=== PATIENT | male | born 1945 | race Caucasian/White ===

== ENCOUNTER → 2020-08-10 11:30 | Outpatient (BNVA) | payer MEDICARE, OTHER, SELFPAY | PROVIDERS: Family Provider Internal Medicine; PCP Internal Medicine; Referring Provider Internal Medicine Cardiovascular Disease; Visit Provider Internal Medicine Cardiovascular Disease | DX: E78.5 Hyperlipidemia, unspecified (principal); I65.23 Occlusion and stenosis of bilateral carotid arteries | CPT/HCPCS: 80061 ==

== ENCOUNTER 2020-08-20 14:57 | Outpatient (CLI) | payer MEDICARE, OTHER, SELFPAY ==
--- NOTE | 2020-08-20 15:00 | USCV_ITS ---
Gilbertjessmell Dewey Joshua Age: 75 Gender: M : 1945 Exam Date: 08/20/2020 15:36 Ordering Phys: Lyle Espinosa MD ([email or web address]) Technologist: Kristine Maldonado Exam Location: [facility] [place] Indication: STENOSIS Risk Factors: Previous Vascular Surgery: Right Brachial BP: / Left Brachial BP: / Right Left Velocity (cm/s) Spectral Plaque Velocity (cm/s) Spectral Plaque Syst/Diast Broadening Syst/Diast Broadening 50.70/ 22.10 Prox CCA 37.40 / 13.90 31.60/ 13.10 Mid CCA 113.10/ 26.30 33.50/ 14.50 Distal CCA 96.00 / 17.10 40.40/ 21.00 Prox ICA 36.10 / 15.70 45.80/ 24.10 Mid ICA 46.20 / 22.70 52.80/ 21.80 Distal ICA 43.10 / 17.20 167.80 ECA 59.60 1.67 ICA/CCA 0.41 Antegrade Vertebral Not Visualized 45.10/ 16.30 cm/s / cm/s Tri Subclavian Tri 38.50 73.60 FINDINGS Patent stent in the distal common carotid/proximal internal carotid artery with normal Doppler flow signals Elevated velocity in the right external carotid artery Mild to moderate plaques of the left bifurcation and proximal internal carotid artery Antegrade flow in the vertebral arteries bilaterally Normal Doppler flow signals in the subclavian arteries bilaterally CONCLUSIONS 1. Patent stent in the right common carotid/no carotid artery with no evidence of any in-stent stenosis. 2. Elevated velocity in the right external carotid artery, may suggest hemodynamically significant stenosis 3. Mild to moderate plaques at the left bifurcation proximal to the carotid artery with flow characteristics suggesting less than 50% stenosis. 4. Intimal thickening in the common carotid arteries bilaterally. No similar previous studies are available for comparison Dr Lyle Espinosa MD [facility] (Electronically Signed) Final Date: 21 August 2020 15:44 S
--- NOTE | 2020-08-20 15:45 | USCV_ITS ---
Joshua Jimenez Jr Age: 75 Gender: M : 1945 Exam Date: 08/20/2020 15:20 Ordering Phys: Lyle Espinosa MD ([email or web address]) Technologist: Kristine Maldonado Exam Location: [facility] – [place] Indication: CHEST PAIN BP: 115 / 59 HR: 71 Rhythm: Sinus Technical Quality: Technically difficult study MEASUREMENTS (Male / Female) Normal Values 2D ECHO LV Diastolic Diameter PLAX 5.2 cm 4.2 - 5.9 / 3.9 - 5.3 cm LV Systolic Diameter PLAX 4.0 cm IVS Diastolic Thickness 1.6 cm 0.6 - 1.0 / 0.6 - 0.9 cm IVS Systolic Thickness 1.9 cm LVPW Diastolic Thickness 2.0 cm 0.6 - 1.0 / 0.6 - 0.9 cm LVPW Systolic Thickness 2.5 cm LVOT Diameter 2.0 cm LV Ejection Fraction 2D Teich 45.7 % LV Ejection Fraction MOD 2C 46.8 % LV Ejection Fraction 2C AL 45.5 % LA Diameter 3.8 cm LA Width 3.2 cm LA Height 3.9 cm RA Width 3.1 cm RA Height 3.5 cm Aorta at Sinotubular Diameter 2.9 cm M-MODE LV Diastolic Diameter MM 4.9 cm 4.2 - 5.9 / 3.9 - 5.3 cm LV Systolic Diameter MM 3.4 cm LV Ejection Fraction MM Teich 59.0 % IVS Diastolic Thickness MM 1.7 cm 0.6 - 1.0 / 0.6 - 0.9 cm IVS Systolic Thickness MM 2.2 cm LVPW Diastolic Thickness MM 1.4 cm 0.6 - 1.0 / 0.6 - 0.9 cm LVPW Systolic Thickness MM 1.6 cm Aortic Annulus Diameter 2.6 cm LA Ao Ratio MM 1.9 MV E Point Septal Separation 1.7 cm DOPPLER AV Peak Velocity 105.0 cm/s LVOT Peak Velocity 105.0 cm/s AV Area Cont Eq vti 3.3 cm squared AV Area Cont Eq pk 3.3 cm squared MV Area PHT 4.3 cm squared Mitral E to A Ratio 1.0 MV E' Velocity 51.0 cm/s Mitral E to MV E' Ratio 15.5 Mitral E to LV E' Lateral Ratio 13.0 Mitral E to LV E' Septal Ratio 19.7 TR Peak Velocity 175.3 cm/s TR Peak Gradient 12.3 mmHg TV Peak E Velocity 86.0 cm/s Right Atrial Pressure 3.0 mmHg Pulmonary Artery Systolic Pressu 15.3 mmHg PV Peak Velocity 94.0 cm/s RV Acceleration Time 0.1 s RV Ejection Time 0.5 s RV AcT/ET 0.2 FINDINGS Left Ventricle Mild diffuse hypokinesia of the left ventricle with an ejection fraction of 45%.mild left ventricular hypertrophy. Some features of grade 2 left-ventricular diastolic dysfunction Right Ventricle Normal right ventricular size and systolic function. Right Atrium possibly of normal size Left Atrium possibly of normal size Mitral Valve Thickened mitral valve. Mild mitral annular calcification. Aortic Valve The bioprosthetic valve the aortic position appears to be well- seated. Leaflets cannot be delineated well. No gross abnormalities noted Tricuspid Valve No gross abnormalities noted Pulmonic Valve Pulmonic valve not well visualized. Pericardium Normal pericardium without effusion. Aorta Normal ascending aorta dimension. CONCLUSIONS Mild diffuse hypokinesia of the left ventricle with an ejection fraction of 45%. mild left ventricular hypertrophy. Some features of grade 2 left-ventricular diastolic dysfunction. The bioprosthetic valve the aortic position appears to be well- seated. Thickened mitral valve. Mild mitral annular calcification. Leaflets cannot be delineated well. No gross abnormalities noted. There is no pericardial effusion. There are no intracardiac masses. No previous study is available for comparison. Compared to the study from 10/20/2017, there is impro vement of the LV ejection fraction and replacement of the aortic valve Dr Lyle Espinosa MD [facility] (Electronically Signed) Final Date: 21 August 2020 15:38 S
== END 2020-08-20 14:58 | disposition home or self-care (01) ==
LOC: US 14:59
PROVIDERS: PCP Internal Medicine; Visit Provider Internal Medicine Cardiovascular Disease
DX: R07.89 Other chest pain (principal); I65.23 Occlusion and stenosis of bilateral carotid arteries; I70.0 Atherosclerosis of aorta; Z95.2 Presence of prosthetic heart valve
CPT/HCPCS: 93306; 93880

== ENCOUNTER 2021-04-20 11:14 | Outpatient (CLI) | payer MEDICARE, OTHER, SELFPAY ==
--- NOTE | 2021-04-20 11:36 | XR_ITS ---
WS: [id number] Left hand, 3 views, 04/20/2021 Clinical Data: THUMB PAIN, LEFT Comparison: None. Findings: No new fractures or dislocations are seen. The soft tissues are unremarkable. The joint spaces are n ormal There is an old left fifth metacarpal fracture. XR/XR hand LT min 3V* [id number] Impression: Negative left hand.
== END 2021-04-20 11:15 | disposition home or self-care (01) ==
PROVIDERS: PCP Internal Medicine; Visit Provider Nurse Practitioner Family
DX: M79.645 Pain in left finger(s) (principal)
CPT/HCPCS: 73130

== ENCOUNTER 2021-08-26 14:21 | Outpatient (CLI) | payer MEDICARE, OTHER, SELFPAY ==
--- NOTE | 2021-08-26 14:15 | USCV_ITS ---
Joshua Jimenez Jr Age: 76 Gender: M : 1945 Exam Date: 08/26/2021 14:40 Ordering Phys: Lyle Espinosa MD ([email or web address]) Technologist: BRIAN [place] [facility] [place]ication: Occlusion and stenosis of bilateral carotid arteries Risk Factors: Previous Vascular Surgery: Right Brachial BP: / Left Brachial BP: / Right Left Velocity (cm/s) Spectral Plaque Velocity (cm/s) Spectral Plaque Syst/Diast Broadening Syst/Diast Broadening 63.90/ 16.50 Prox CCA 73.90 / 15.40 52.80/ 14.80 Mid CCA 50.40 / 10.30 33.40/ 7.80 Distal CCA 186.20/ 30.60 34.40/ 9.10 Prox ICA 81.60 / 24.30 52.80/ 15.30 Mid ICA 52.50 / 13.80 56.00/ 18.10 Distal ICA 42.90 / 16.10 140.70 ECA 110.30 1.06 ICA/CCA 1.62 Antegrade Vertebral Antegrade 39.70/ 12.40 cm/s 43.95/ 11.20 cm/s Tri Subclavian Bi 43.50 107.0 0 CONCLUSIONS Right ICA stenosis <50%. Mild atheromatous plaque right carotid bulb/ICA. Left ICA stenosis <50%. Mild atheromatous plaque left carotid bulb/ICA. Normal antegrade Doppler flow noted in the right vertebral artery. Normal antegrade Doppler flow noted in the left vertebral artery. Ramon Schafer MD (Electronically Signed) Final Date: 26 August 2021 16:31 S
--- NOTE | 2021-08-26 14:34 | USCV_ITS ---
Barbara Dewey, Joshua Age: 76 Gender: M : 1945 Exam Date: 08/26/2021 15:06 Ordering Phys: Lyle Espinosa MD ([email or web address]) Technologist: BRIAN Exam Location: [facility] – [place] Indication: coronary angioplasty status BP: 123 / 80 HR: 72 Rhythm: Sinus Technical Quality: Technically difficult study MEASUREMENTS (Male / Female) Normal Values 2D ECHO LV Diastolic Diameter PLAX 4.8 cm 4.2 - 5.9 / 3.9 - 5.3 cm LV Systolic Diameter PLAX 3.9 cm IVS Diastolic Thickness 1.1 cm 0.6 - 1.0 / 0.6 - 0.9 cm IVS Systolic Thickness 1.4 cm LVPW Diastolic Thickness 1.3 cm 0.6 - 1.0 / 0.6 - 0.9 cm LVPW Systolic Thickness 1.7 cm LVOT Diameter 2.0 cm LV Ejection Fraction 2D Teich 39.7 % LA Diameter 3.7 cm Aorta at Sinotubular Diameter 2.7 cm M-MODE MV E Point Septal Separation 1.2 cm DOPPLER AV Peak Velocity 251.0 cm/s LVOT Peak Velocity 126.0 cm/s AV Area Cont Eq vti 1.5 cm squared AV Area Cont Eq pk 1.6 cm squared MV Area PHT 3.1 cm squared Mitral E to A Ratio 1.1 MV E' Velocity 56.5 cm/s Mitral E to MV E' Ratio 19.1 Mitral E to LV E' Lateral Ratio 19.1 Mitral E to LV E' Septal Ratio 19.1 TV Peak E Velocity 48.0 cm/s PV Peak Velocity 84.0 cm/s RV Acceleration Time 0.0 s RV Ejection Time 0.3 s RV AcT/ET 0.2 FINDINGS Left Ventricle Normal left ventricular cavity size. Moderately decreased left ventricular systolic function. Left ventricular ejection fraction is estimated at 45 %. Global left ventricular hypokinesis. Grade I/IV diastolic dysfunction (abnormal relaxation filling pattern), normal to mildly elevated filling pressures. Right Ventricle The right ventricle is normal in size and function. RVSP could not be calculated due to incomplete tricuspid regurgitation velocity profile. Right Atrium The right atrium is normal in size. Left Atrium The left atrium is normal in size. Mitral Valve Severely thickened mitral valve. Severe mitral annular calcification. No mitral valve stenosis. Trace mitral valve regurgitation. Aortic Valve Bioprosthetic aortic valve is present in normal position, mean gradient 13.5 mmHg, JEAN 1.5 cm squared.no aortic valve regurgitation. Tricuspid Valve Structurally normal tricuspid valve without significant stenosis or regurgitation. Pulmonary artery systolic pressure is normal. Pulmonic Valve Structurally normal pulmonic valve without significant stenosis. There is no pulmonic regurgitation. Pericardium Normal pericardium without effusion. Aorta Normal ascending aorta dimension. CONCLUSIONS 1-Normal left ventricular cavity size. Moderately decreased left ventricular systolic function. Left ventricular ejection fraction is estimated at 45 %. Global left ventricular hypokinesis. Grade I/IV diastolic dysfunction (abnormal relaxation filling pattern), normal to mildly elevated filling pressures. 2-Severely thickened mitral valve. Severe mitral annular calcification. No mitral valve stenosis. Trace mitral valve regurgitation. 3-Bioprosthetic aortic valve is present in normal position, mean gradient 13.5 mmHg, JEAN 1.5 cm squared.no aortic valve regurgitation. 4-The right ventricle is normal in size and function. RVSP could not be calculated due to incomplete tricuspid regurgitation velocity profile. 5-There is no pericardial effusion. 6-Right atrial pressure is around 5 mm of mercury. 7-No significant change from the prior exam dated August 21, 2020 there is no significant difference. Fany Johnson MD (Electronically Signed) Final Date: 26 August 2021 17:45 S
== END 2021-08-26 14:22 | disposition home or self-care (01) ==
PROVIDERS: PCP Internal Medicine; Visit Provider Internal Medicine Cardiovascular Disease
DX: Z98.61 Coronary angioplasty status (principal); I65.23 Occlusion and stenosis of bilateral carotid arteries; I08.1 Rheumatic disorders of both mitral and tricuspid valves; Z95.2 Presence of prosthetic heart valve
CPT/HCPCS: 93306; 93880

== ENCOUNTER → 2021-11-10 12:49 | Outpatient (BNVA) | payer MEDICARE, OTHER, SELFPAY | PROVIDERS: PCP Internal Medicine; Visit Provider Internal Medicine Cardiovascular Disease | DX: I25.10 Atherosclerotic heart disease of native coronary artery without angina pectoris (principal); I25.5 Ischemic cardiomyopathy; E78.5 Hyperlipidemia, unspecified; I44.7 Left bundle-branch block, unspecified; J44.9 Chronic obstructive pulmonary disease, unspecified; I35.0 Nonrheumatic aortic (valve) stenosis; I48.21 Permanent atrial fibrillation; Z95.1 Presence of aortocoronary bypass graft; Z95.810 Presence of automatic (implantable) cardiac defibrillator; I65.23 Occlusion and stenosis of bilateral carotid arteries; Z95.5 Presence of coronary angioplasty implant and graft; Z87.891 Personal history of nicotine dependence | CPT/HCPCS: 99214 ==

== ENCOUNTER → 2021-11-29 13:58 | Outpatient (BNVA) | payer MEDICARE, OTHER, SELFPAY | PROVIDERS: PCP Internal Medicine; Visit Provider Internal Medicine Cardiovascular Disease | DX: Z45.02 Encounter for adjustment and management of automatic implantable cardiac defibrillator (principal) | CPT/HCPCS: 93284 ==

== ENCOUNTER 2021-12-24 11:20 | Outpatient (CLI) | payer MEDICARE, OTHER, SELFPAY ==
[2021-12-24 12:18] LABS: Blood Urea Nitrogen 11 mg/dL (8-23); Calcium 9.5 mg/dL (8.5-10.5); Carbon Dioxide 23 mmol/L (22-29); Chloride 101 mmol/L (98-107); Glucose 105 mg/dL (65-115); NT Pro B Type Natriuretic Pept 403 pg/mL (0-450); Osmolality Calculated 282 mOsm/kg (285-295); Sodium 136 mmol/L (136-145)
[2021-12-24 12:19] LABS: Anion Gap 16.2 (5-19); Potassium 4.2 mmol/L (3.5-5.1)
== END 2021-12-24 11:21 | disposition home or self-care (01) ==
LOC: LAB 11:29
PROVIDERS: PCP Internal Medicine; Visit Provider Internal Medicine Cardiovascular Disease
DX: I25.10 Atherosclerotic heart disease of native coronary artery without angina pectoris (principal); I25.5 Ischemic cardiomyopathy; I48.21 Permanent atrial fibrillation; I27.20 Pulmonary hypertension, unspecified; R60.9 Edema, unspecified
CPT/HCPCS: 80048; 83880

== ENCOUNTER → 2022-05-12 15:00 | Outpatient (BNVA) | payer MEDICARE, OTHER, SELFPAY | PROVIDERS: PCP Internal Medicine; Visit Provider Internal Medicine Cardiovascular Disease | DX: I25.5 Ischemic cardiomyopathy (principal); I50.20 Unspecified systolic (congestive) heart failure; R06.02 Shortness of breath; E78.5 Hyperlipidemia, unspecified; I25.10 Atherosclerotic heart disease of native coronary artery without angina pectoris; J44.9 Chronic obstructive pulmonary disease, unspecified; I27.20 Pulmonary hypertension, unspecified; I48.21 Permanent atrial fibrillation; Z95.2 Presence of prosthetic heart valve; Z95.810 Presence of automatic (implantable) cardiac defibrillator; I65.23 Occlusion and stenosis of bilateral carotid arteries; F17.200 Nicotine dependence, unspecified, uncomplicated | CPT/HCPCS: 36415; 80048; 83880; 99214 ==

== ENCOUNTER → 2022-05-26 12:48 | Outpatient (BNVA) | payer MEDICARE, OTHER, SELFPAY | PROVIDERS: PCP Internal Medicine; Visit Provider Nurse Practitioner Family | DX: I25.5 Ischemic cardiomyopathy (principal); Z87.891 Personal history of nicotine dependence | CPT/HCPCS: 99213; 99214 ==

== ENCOUNTER 2022-06-02 12:31 | Outpatient (CLI) | payer MEDICARE, OTHER, SELFPAY ==
[2022-06-02 13:23] LABS: Anion Gap 13.3 (5-19); Blood Urea Nitrogen 14 mg/dL (8-23); Calcium 9.6 mg/dL (8.5-10.5); Carbon Dioxide 27 mmol/L (22-29); Chloride 101 mmol/L (98-107); Glucose 87 mg/dL (65-115); NT Pro B Type Natriuretic Pept 213 pg/mL (0-450); Osmolality Calculated 284 mOsm/kg (285-295); Potassium 4.3 mmol/L (3.5-5.1); Sodium 137 mmol/L (136-145)
== END 2022-06-02 12:32 | disposition home or self-care (01) ==
PROVIDERS: Nurse Practitioner Family; PCP Internal Medicine; Visit Provider Internal Medicine Cardiovascular Disease
DX: I25.5 Ischemic cardiomyopathy (principal)
CPT/HCPCS: 36415; 80048; 83880

== ENCOUNTER → 2022-07-22 08:11 | Outpatient (BNVA) | payer MEDICARE, OTHER, SELFPAY | PROVIDERS: PCP Internal Medicine; Visit Provider Nurse Practitioner Family | DX: I25.5 Ischemic cardiomyopathy (principal); Z87.891 Personal history of nicotine dependence | CPT/HCPCS: 36415; 99214 ==

== ENCOUNTER → 2022-08-03 13:16 | Outpatient (BNVA) | payer MEDICARE, OTHER, SELFPAY | PROVIDERS: PCP Internal Medicine; Visit Provider Nurse Practitioner Family | DX: I25.5 Ischemic cardiomyopathy (principal); I48.21 Permanent atrial fibrillation; Z87.891 Personal history of nicotine dependence | CPT/HCPCS: 99213 ==

== ENCOUNTER → 2022-08-19 11:17 | Outpatient (BNVA) | payer MEDICARE, OTHER, SELFPAY | PROVIDERS: PCP Internal Medicine; Visit Provider Internal Medicine Cardiovascular Disease | DX: Z45.02 Encounter for adjustment and management of automatic implantable cardiac defibrillator (principal) | CPT/HCPCS: 93284 ==

== ENCOUNTER → 2022-11-22 14:11 | Outpatient (BNVA) | payer MEDICARE, OTHER, SELFPAY | PROVIDERS: PCP Internal Medicine; Visit Provider Internal Medicine Cardiovascular Disease | DX: I25.5 Ischemic cardiomyopathy (principal); E78.5 Hyperlipidemia, unspecified; I27.20 Pulmonary hypertension, unspecified; I25.10 Atherosclerotic heart disease of native coronary artery without angina pectoris; I48.21 Permanent atrial fibrillation; Z95.2 Presence of prosthetic heart valve; Z95.810 Presence of automatic (implantable) cardiac defibrillator; I65.23 Occlusion and stenosis of bilateral carotid arteries; Z87.891 Personal history of nicotine dependence; Z79.82 Long term (current) use of aspirin | CPT/HCPCS: 99214 ==

== ENCOUNTER → 2022-11-29 09:05 | Outpatient (BNVA) | payer MEDICARE, OTHER, SELFPAY | PROVIDERS: PCP Internal Medicine; Visit Provider Internal Medicine Cardiovascular Disease | DX: Z45.02 Encounter for adjustment and management of automatic implantable cardiac defibrillator (principal) | CPT/HCPCS: 93295; 93296 ==

== ENCOUNTER 2022-12-05 14:51 | Outpatient (CLI) | payer MEDICARE, OTHER, SELFPAY ==
--- NOTE | 2022-12-05 15:00 | USCV_ITS ---
GilbertjessJoshua monte Jr Age: 77 Gender: M : 1945 Exam Date: 12/05/2022 15:18 Ordering Phys: Lyle Espinosa MD ([email or web address]) Technologist: IMAN Exam Location: [facility] – [place] Indication: Stenosis Risk Factors: Previous Vascular Surgery: Right Brachial BP: / Left Brachial BP: / Right Left Velocity (cm/s) Spectral Plaque Velocity (cm/s) Spectral Plaque Syst/Diast Broadening Syst/Diast Broadening 82.30/ 23.30 Prox CCA 58.70 / 13.90 52.80/ 16.30 Mid CCA 127.90/ 32.00 61.40/ 17.10 Distal CCA 128.00/ 16.60 55.50/ 14.50 Prox ICA 65.00 / 19.50 52.80/ 16.40 Mid ICA 52.40 / 19.90 88.00/ 26.50 Distal ICA 52.40 / 17.10 203.30 ECA 86.70 1.07 ICA/CCA 0.51 Antegrade Vertebral Antegrade 50.20/ 17.10 cm/s 13.80/ 6.20 cm/s Tri Subclavian Tri 144.5 153.8 0 0 FINDINGS Patent stented segment of the common carotid and internal carotid arteries on the left side Mild to moderate plaques in the left bifurcation and internal carotid artery low velocity Doppler waveforms in the left vertebral artery Elevated Doppler velocity in the right external carotid artery Normal Doppler flow velocities in the subclavian arteries bilaterally CONCLUSIONS 1. Patent stented segment of the common carotid and internal carotid arteries of the right side with no evidence of stenosis 2. Elevated velocity in the external carotid artery on the right side, suggestive of hemodynamically significant stenosis. 3. Features of sluggish blood flow in the left vertebral artery 4. Mild to moderate plaques in the left bifurcation and internal carotid artery, suggesting less than 50% stenosis Compared to the study from 08/26/2021, the left vertebral artery flow velocity has significantly decreased Dr Lyle Espinosa MD [facility] (Electronically Signed) Final Date: 06 Dec 2022 22:53 S
== END 2022-12-05 14:52 | disposition home or self-care (01) ==
LOC: RAD 14:56
PROVIDERS: PCP Internal Medicine; Visit Provider Internal Medicine Cardiovascular Disease
DX: I65.23 Occlusion and stenosis of bilateral carotid arteries (principal); I77.9 Disorder of arteries and arterioles, unspecified; Z95.828 Presence of other vascular implants and grafts
CPT/HCPCS: 93880

== ENCOUNTER 2023-03-14 11:02 | Emergency (ER) | payer MEDICARE, OTHER, SELFPAY ==
[2023-03-14 11:07] VITALS: BMI 28.8
[2023-03-14 11:09] VITALS: BP 121/71; PULSE 81; RESP 16; TEMP 36.7; O2SAT 96
--- NOTE | 2023-03-14 11:09 | ECG_ITS ---
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 Measurements Intervals [place] Rate: 78 P: 18 MD: 141 QRS: 120 QRSD: 137 T: 27 QT: 410 QTc: 467 Interpretive Statements ELECTRONIC VENTRICULAR PACEMAKER ABNORMAL RHYTHM ECG No previous ECG available for comparison Electronically Signed On 03-14-2023 23:57:32 CDT by Lyle Espinosa M.D. [email or web address] campus [email or web address] delta regional medical centerSensorberg GmbHcleveland clinic union [email or web address].[place] [id number]
--- NOTE | 2023-03-14 11:23 | XR_ITS ---
WS: [id number] Exam: XR chest 1V portable [id number] Date/Time of Exam: 03/14/2023 11:26 AM Reason For Exam: chest pain Comparison 06/01/2018. The lungs are fully inflated and clear. Mild cardiac enlargement unchanged. A cardiac pacer and defibrillator superimpose the LEFT chest. Signs of previous CABG surgery and cardia c valve replacement. No pleural effusions. The mediastinum is normal in contour for technique. Bony s tructures are intact. IMPRESSION: 1. No acute cardiopulmonary finding. 2. Mild cardiac enlargement stable.
--- NOTE | 2023-03-14 11:44 | ED_ITS ---
HPI - Chest Pain General: Chief Complaint: Chest Pain Stated Complaint: CP, legs tingling Time Seen by Provider: 03/14/23 11:21 History of Present Illness: This is a 78-year-old male here with his and daughter. Patient reports he woke up at about 6:00 this morning due to chest discomfort in the center of his chest radiating slightly to the left and to the right. He reports he also felt like he was breathing heavily. He attempted to slow his breathing but that did not really seem to make a difference. No diaphoresis, nausea, neck pain, jaw pain, arm discomfort. He said he felt generally weak in his legs both began to tingle. It lasted about 30 minutes. He went ahead and took a baby aspirin but did not have any nitroglycerin. It was resolved by 630 this morning. He does have a relevant history of ischemic cardiomyopathy, dyslipidemia, COPD, aortic valve replacement, atrial fibrillation, ICD and pacemaker, pulmonary hypertension, and noncritical carotid stenosis bilaterally. Patient reports has not had any symptoms since 630 this morning. When asked about any anginal equivalent symptoms over the last few months, the only thing he can say is that he sometimes gets lightheaded while walking longer distances at [facility]. He typically will use the cart to steady himself. Otherwise he has not had any symptoms Associated symptoms: Deny abdominal pain, dyspnea, fever(s), nausea or vomiting Review of Systems General: Reports: 10 or more systems reviewed and unremarkable except in HPI and below Const: Denies: fever(s), chills or body aches Eyes: Denies: change in vision ENMT: Denies: throat pain Card: Denies: edema Resp: Denies: dyspnea or productive cough GI: Denies: abdominal pain, nausea, vomiting or diarrhea : Denies: flank pain, dysuria or urinary frequency Musc: Denies: neck pain, back pain, extremity pain or extremity swelling Skin/Breast: Denies: rash or erythema Neuro: Denies: headache(s), numbness in extremities, weakness in extremities, lack of coordination or difficulty walking PFS ED PFSH: Medical History Aortic stenosis ASHD (arteriosclerotic heart disease) The EKG revealed a sensed V paced rhythm. Occasional PVCs. Atrial fibrillation Cardiomyopathy Carotid stenosis, bilateral COPD (chronic obstructive pulmonary disease) Glucose intolerance Left bundle branch block Pulmonary HTN Tobacco abuse Surgical History History of maze procedure S/P AVR (aortic valve replacement) S/P CABG (coronary artery bypass graft) S/P ICD (internal cardiac defibrillator) procedure S/P PTCA (percutaneous transluminal coronary angioplasty) Family History Mother CAD (coronary artery disease) Cancer Father CAD (coronary artery disease) Cancer Denies family history of Diabetes Clotting disorder Dementia Chronic kidney disease (CKD) Suicide Anesthesia complication Bleeding disorder Lung disease Stroke Social History Smoking and tobacco status: former smoker (11 years ago) Household members: spouse Marital status: Physical Exam Const: COMMON NORMALS: no limitations, alert and well nourished EXAM LIMITATIONS: no altered mental status HENMT: COMMON NORMALS: normocephalic, atraumatic and external ears normal HEAD & SCALP: normocephalic and atraumatic EXTERNAL EAR: Yes external ears normal MOUTH: no muffled voice Eye: COMMON NORMALS: EOMs intact bilaterally, conjunctivae normal and no scleral icterus CONJUNCTIVA: Yes conjunctivae normal Neck/C-Spine: COMMON NORMALS: no JVD GENERAL: Yes normal visual inspection and Yes trachea midline Resp: COMMON NORMALS: normal respiratory effort, No use of accessory muscles and clear to auscultation bilaterally AUSCULTATION: clear to auscultation bilaterally Cardio: COMMON NORMALS: no JVD, regular rate and regular rhythm RATE: regular rate RHYTHM: regular rhythm GI: COMMON NORMALS: Soft to palpation and non-tender PALPATION: Yes Soft to palpation and No Guarding due to palpation present (GI) Extremity: COMMON NORMALS: normal to inspection Neuro: COMMON NORMALS: moves all extremities, no focal motor deficits and no sensory deficits noted SENSORIUM/ORIENTATION: Yes alert SPEECH: speech normal Psych: COMMON NORMALS: mental status grossly normal, Normal thought process present, cooperative, normal affect and speech normal SPEECH: Yes normal speech THOUGHT PROCESS: Normal thought process present Skin: COMMON NORMALS: no rashes or lesions noted, turgor normal and no jaundice GENERAL SKIN EXAM: no rashes or lesions noted and turgor normal Course Vital Signs: Vital signs: Vital Signs Temperature 98.0 F 03/14/23 11:09 Pulse Rate 78 03/14/23 12:05 Respiratory Rate 18 03/14/23 12:05 Blood Pressure 121/71 03/14/23 11:09 Pulse Oximetry 95 03/14/23 12:05 Oxygen Delivery Me thod Room Air 03/14/23 12:05 MDM - Chest Pain Medical Decision Making Joshua is a well-appearing 78-year-old male in good spirits. He has no di scomfort at this time but had 30 minutes of chest discomfort associated with a vague sense of dyspnea and generalized weakness with tingling in both of his lower extremities earlier this morning. He does have an extensive cardiac history. The plan is to obtain troponin levels, chest x-ray, interrogate his pacemaker and reassess. It has been 5 hours since his chest pain stopped so a single troponin should be sufficient to help us make a decision. I will go ahead and give him 324 of aspirin today. No abdominal tenderness. No signs of congestive heart failure exacerbation. Patient is on room air with normal breath sounds and work of breathing. UPDATE: Troponin is 10. White blood cell count is 8.6. Hemoglobin 13.8. Platelets normal, electrolytes normal. [employer] interrogation shows a longevity of 4 years, measured [place] wave is 2 mV atrial and 2.6 mV right ventricle. Programmed sensitivity is 0.3 mV atrial and 0.3 mV right ventricular. Mode is DDDR. There were no detected episodes of arrhythmia. No overdrive pacing. No issues. I discussed all these results with the patient and his . Patient has been asymptomatic since 6:30 AM. He is resting comfortably and has normal vital signs. I gave him the option of observation admission to the hospital versus being discharged with return precautions. I did explain that I was unsure what caused his symptoms and that he does have significant coronary risk factors. Patient considered and decided that he would absolutely like to go home. I will go ahead and prescribe some nitroglycerin and I gave him the usual return precautions. Lab Data 03/14/23 11:37 03/14/23 11:37 Laboratory Results WBC 8.59 10^3/uL (3.29-11.43) 03/14/23 11:37 RBC 4.51 10^6/uL (3.85-5.65) 03/14/23 11:37 Hgb 13.80 g/dL (11.27-16.99) 03/14/23 11:37 Hct 41.9 % (37-53) 03/14/23 11:37 MCV 92.9 fl (82-101) 03/14/23 11:37 MCH 30.6 pg (27-33) 03/14/23 11:37 MCHC 32.9 g/dL (30-55) 03/14/23 11:37 RDW 12.7 % (12.1-15.1) 03/14/23 11:37 Plt Count 191 10^3/cmm (157-399) 03/14/23 11:37 MPV 11.1 fL (7.4-10.4) H 03/14/23 11:37 Neut % (Auto) 77.3 % 03/14/23 11:37 Lymph % (Auto) 10.8 % 03/14/23 11:37 [place] % (Auto) 8.4 % 03/14/23 11:37 Eos % (Auto) 2.1 % 03/14/23 11:37 Baso % (Auto) 1.2 % 03/14/23 11:37 Neut # (Auto) 6.64 10^3/uL (1.8-7.7) 03/14/23 11:37 Lymph # (Auto) 0.9 10^3/uL (0.8-4.8) 03/14/23 11:37 [place] # (Auto) 0.7 10^3/uL (0.2-0.9) 03/14/23 11:37 Eos # (Auto) 0.2 10^3/uL (0.0-0.8) 03/14/23 11:37 Baso # (Auto) 0.1 10^3/uL (0.0-0.1) 03/14/23 11:37 Nucleated RBC % (auto) 0 % 03/14/23 11:37 Nucleated RBCs # 0.0 /100WBC 03/14/23 11:37 Sodium 138 mmol/L (136-145) 03/14/23 11:37 Potassium 4.1 mmol/L (3.5-5.1) 03/14/23 11:37 Chloride 105 mmol/L (98-107) 03/14/23 11:37 Carbon Dioxide 22 mmol/L (22-29) 03/14/23 11:37 Anion Gap 15.1 (5-19) 03/14/23 11:37 BUN 13 mg/dL (8-23) 03/14/23 11:37 Creatinine 0.9 mg/dL (0.7-1.2) 03/14/23 11:37 GFR Calculation Not Reportable 03/14/23 11:37 Glucose 111 mg/dL (65-115) 03/14/23 11:37 Calculated Osmolality 287 mOsm/kg (285-295) 03/14/23 11:37 Calcium 8.8 mg/dL (8.5-10.5) 03/14/23 11:37 Total Bilirubin 0.4 mg/dL (0.15-1.2) 03/14/23 11:37 AST 15 U/L (0-40) 03/14/23 11:37 ALT 18 U/L (0-41) 03/14/23 11:37 Alkaline Phosphatase 65 U/L (40-130) 03/14/23 11:37 Troponin T Baseline 10 ng/L (0-15) 03/14/23 11:37 NT-Pro-B Natriuret Pep 292 pg/mL (0-450) 03/14/23 11:37 Total Protein 6.4 g/dL (6.6-8.7) L 03/14/23 11:37 Albumin 4.3 g/dL (3.5-5.2) 03/14/23 11:37 Globulin 2.1 g/dL (1.3-4.6) 03/14/23 11:37 Lipase 34 U/L (13-60) 03/14/23 11:37 Discharge Plan Discharge Patient Disposition: Home Clinical Impression: Chest pain Condition: Stable Prescriptions: New nitroglycerin 0.4 mg tablet, sublingual 0.4 mg sublingual Q5M PRN (Reason: chest pain) Qty: 30 0RF Rx Instructions: do not exceed 3 doses per episode. If symptoms have not resolved, call 911 No Action montelukast [Singulair] 10 mg tablet 10 mg PO DAILY@14 multivitamin Tablet 1 tab PO QAM sacubitril-valsartan 49-51 mg tablet 1 tab PO BID Qty: 180 2RF Aspir-81 81 mg Tablet,Delayed Release (Dr/Ec) 81 mg PO QAM MegaRed Barry-3 Krill Oil [id number] mg Capsule 1 cap PO QAM clopidogrel 75 mg tablet 75 mg PO QAM omeprazole 40 mg capsule,delayed release(DR/EC) 40 mg PO DAILY PRN (Reason: Heartburn) metoprolol succinate 25 mg tablet extended release 24 hr 25 mg PO QAM rosuvastatin 20 mg tablet 20 mg PO QAM Discharge Orders: Discharge ED (Routine); Ordered 03/14/23 Ordered By: Eric Gillis Referrals: Lyle Espinosa MD [Physician] - 4-7 days (Acute chest pain) Taiwo Reddy DO [Primary Care Provider] - Discharge Diet: Cardiac Discharge Activity: Increase activity as tolerated Patient Instructions: Chest Pain (ED), Chest Pain Stoplight, Opioid Safety, Pain Management Activity Restrictions/Additional Instructions: The cause of your chest pain is unclear. There were no signs of heart attack today. This does not rule out angina or unstable angina. Please return to the emergency department or call 911 if you have recurrent symptoms. Please call Dr. Espinosa and make an appointment for follow-up in the next 4 to 7 days. Continue to take aspirin. You may use nitroglycerin as needed for an episode of chest discomfort. If you have to use nitroglycerin, you should be making a call to your hyster machine operator or returning to the emergency department. Coding Level of Care Code ED Call Specialist for Fortunato Duncan
[2023-03-14 11:45] LABS: Basophils # 0.1 10^3/uL (0.0-0.1); Basophils % 1.2 %; Eosinophils # 0.2 10^3/uL (0.0-0.8); Eosinophils % 2.1 %; Hematocrit 41.9 % (37-53); Lymphocytes # 0.9 10^3/uL (0.8-4.8); Lymphocytes % 10.8 %; Mean Corpuscular HGB Conc 32.9 g/dL (30-55); Mean Corpuscular Hemoglobin 30.6 pg (27-33); Mean Corpuscular Volume 92.9 fl (82-101); Mean Platelet Volume 11.1 fL (7.4-10.4); Monocytes # 0.7 10^3/uL (0.2-0.9); Monocytes % 8.4 %; Neutrophils # 6.64 10^3/uL (1.8-7.7); Neutrophils % 77.3 %; Nucleated Red Blood Cells % 0 %; Platelet Count 191 10^3/cmm (157-399); Red Blood Count 4.51 10^6/uL (3.85-5.65); Red Cell Distribution Width 12.7 % (12.1-15.1); White Blood Count 8.59 10^3/uL (3.29-11.43)
[2023-03-14 12:01] LABS: Troponin(5th) Baseline 10 ng/L (0-15)
[2023-03-14 12:05] VITALS: PULSE 78; RESP 18; O2SAT 95
[2023-03-14] MEDS: aspirin 81 mg Chew Tablet 324 MG PO (12:11)
[2023-03-14 12:12] LABS: Alanine Aminotransferase 18 U/L (0-41); Albumin Level 4.3 g/dL (3.5-5.2); Alkaline Phosphatase 65 U/L (40-130); Anion Gap 15.1 (5-19); Aspartate Amino Transferase 15 U/L (0-40); Blood Urea Nitrogen 13 mg/dL (8-23); Calcium 8.8 mg/dL (8.5-10.5); Carbon Dioxide 22 mmol/L (22-29); Chloride 105 mmol/L (98-107); Globulin 2.1 g/dL (1.3-4.6); Glucose 111 mg/dL (65-115); Lipase 34 U/L (13-60); NT Pro B Type Natriuretic Pept 292 pg/mL (0-450); Osmolality Calculated 287 mOsm/kg (285-295); Potassium 4.1 mmol/L (3.5-5.1); Sodium 138 mmol/L (136-145); Total Bilirubin 0.4 mg/dL (0.15-1.2); Total Protein 6.4 g/dL (6.6-8.7)
== END 2023-03-14 13:32 | disposition home or self-care (01) ==
PROVIDERS: Emergency Provider Emergency Medicine; PCP Internal Medicine
DX: R07.9 Chest pain, unspecified (principal); Z79.82 Long term (current) use of aspirin; Z87.891 Personal history of nicotine dependence; J44.9 Chronic obstructive pulmonary disease, unspecified; Z95.1 Presence of aortocoronary bypass graft
CPT/HCPCS: 36415; 71045; 80053; 83690; 83880; 84484; 85025; 93005; 99285

== ENCOUNTER → 2023-06-06 13:55 | Outpatient (BNVA) | payer MEDICARE, OTHER, SELFPAY | PROVIDERS: PCP Internal Medicine; Visit Provider Internal Medicine Cardiovascular Disease | DX: I25.5 Ischemic cardiomyopathy (principal); I25.10 Atherosclerotic heart disease of native coronary artery without angina pectoris; I48.21 Permanent atrial fibrillation; I27.20 Pulmonary hypertension, unspecified; E78.5 Hyperlipidemia, unspecified; Z95.2 Presence of prosthetic heart valve; I65.29 Occlusion and stenosis of unspecified carotid artery; Z87.891 Personal history of nicotine dependence; Z95.1 Presence of aortocoronary bypass graft; Z95.810 Presence of automatic (implantable) cardiac defibrillator | CPT/HCPCS: 99214 ==

== ENCOUNTER → 2023-11-22 15:44 | Outpatient (BNVA) | payer MEDICARE, OTHER, SELFPAY | PROVIDERS: PCP Internal Medicine; Visit Provider Internal Medicine Cardiovascular Disease | DX: Z45.02 Encounter for adjustment and management of automatic implantable cardiac defibrillator (principal) | CPT/HCPCS: 93296 ==

== ENCOUNTER → 2023-12-07 11:35 | Outpatient (BNVA) | payer MEDICARE, OTHER, SELFPAY | PROVIDERS: PCP Internal Medicine; Visit Provider Internal Medicine Cardiovascular Disease | DX: I48.21 Permanent atrial fibrillation (principal); Z95.2 Presence of prosthetic heart valve; I25.5 Ischemic cardiomyopathy; Z95.810 Presence of automatic (implantable) cardiac defibrillator; I65.23 Occlusion and stenosis of bilateral carotid arteries; Z95.1 Presence of aortocoronary bypass graft; E78.5 Hyperlipidemia, unspecified; Z87.891 Personal history of nicotine dependence | CPT/HCPCS: 99214 ==

== ENCOUNTER 2023-12-19 11:44 | Outpatient (CLI) | payer MEDICARE, OTHER, SELFPAY ==
--- NOTE | 2023-12-19 12:00 | USCV_ITS ---
Barbara Dewey, Joshua Age: 78 Gender: M : 1945 Exam Date: 12/19/2023 12:00 Ordering Phys: Lyle Espinosa MD ([email or web address]) Technologist: CT Exam Location: [facility] – [place] Indication: avr BP: / HR: 66 Rhythm: Sinus Technical Quality: Technically difficult study MEASUREMENTS (Male / Female) Normal Values 2D ECHO LVOT Diameter 2.0 cm LV Ejection Fraction MOD 2C 50.4 % LV Ejection Fraction 2C AL 51.8 % LA Diameter 3.9 cm RA Systolic Volume 4C AL 57.3 ml RA Systolic Volume 4C MOD 54.3 ml LA Sys Volume AL 62.5 cm cubed Aorta at Sinotubular Diameter 3.2 cm DOPPLER AV Peak Velocity 273.0 cm/s LVOT Peak Velocity 177.0 cm/s AV Area Cont Eq vti 1.9 cm squared AV Area Cont Eq pk 2.1 cm squared MV Peak Velocity 113.0 cm/s MV Area PHT 2.7 cm squared Mitral E to A Ratio 1.2 TR Peak Velocity 138.0 cm/s TR Peak Gradient 7.6 mmHg TV Peak E Velocity 69.0 cm/s Right Atrial Pressure 3.0 mmHg Pulmonary Artery Systolic Pressu 10.6 mmHg PV Peak Velocity 110.5 cm/s FINDINGS Left Ventricle Moderate left ventricular hypertrophy. No regional wall motion abnormalities. Normal left ventricular size and systolic function, EF 52% . Right Ventricle The right ventricle is normal in size and function. Right Atrium The right atrium is normal in size. Left Atrium Mildly increased left atrial size. Mitral Valve Thickened mitral valve. 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 The peak velocity across the valve is 2.78 m/s with a peak gradient of 31 mmHg Tricuspid Valve No gross abnormalities noted Pulmonic Valve Mild pulmonary valve regurgitation. Pericardium Normal pericardium without effusion. Aorta Normal ascending aorta dimension. IVC The inferior vena cava appears normal. CONCLUSIONS Moderate left ventricular hypertrophy. No regional wall motion abnormalities. Normal left ventricular size and systolic function, EF 52% . The bioprosthetic valve in the aortic position appears to be well-seated. The peak velocity across the valve is 2.78 m/s with a peak gradient of 31 mmHg. Thickened mitral valve. Mildly increased left atrial size. There is no pericardial effusion. There are no intracardiac masses. Compared to the previous study from 08/26/2021, the LV ejection fraction has slightly improved. From 45 to 52% Dr Lyle Espinosa MD [facility] (Electronically Signed) Final Date: 21 December 2023 22:48 S
== END 2023-12-19 11:45 | disposition home or self-care (01) ==
LOC: RAD 11:44
PROVIDERS: PCP Internal Medicine; Visit Provider Internal Medicine Cardiovascular Disease
DX: Z95.2 Presence of prosthetic heart valve (principal); I25.5 Ischemic cardiomyopathy; I51.7 Cardiomegaly
CPT/HCPCS: 93306

== ENCOUNTER → 2024-02-28 10:39 | Outpatient (BNVA) | payer MEDICARE, OTHER, SELFPAY | PROVIDERS: PCP Internal Medicine; Visit Provider Internal Medicine | DX: Z45.02 Encounter for adjustment and management of automatic implantable cardiac defibrillator (principal) | CPT/HCPCS: 93296 ==

== ENCOUNTER → 2024-05-30 11:24 | Outpatient (BNVA) | payer MEDICARE, OTHER, SELFPAY | PROVIDERS: PCP Internal Medicine; Visit Provider Internal Medicine Cardiovascular Disease | DX: Z45.02 Encounter for adjustment and management of automatic implantable cardiac defibrillator (principal) | CPT/HCPCS: 93296 ==

== ENCOUNTER → 2024-06-17 11:42 | Outpatient (BNVA) | payer MEDICARE, OTHER, SELFPAY | PROVIDERS: PCP Internal Medicine; Visit Provider Internal Medicine Cardiovascular Disease | DX: Z95.810 Presence of automatic (implantable) cardiac defibrillator (principal); I65.23 Occlusion and stenosis of bilateral carotid arteries; Z95.2 Presence of prosthetic heart valve; Z95.1 Presence of aortocoronary bypass graft; I48.21 Permanent atrial fibrillation; E78.5 Hyperlipidemia, unspecified; I50.22 Chronic systolic (congestive) heart failure; Z87.891 Personal history of nicotine dependence | CPT/HCPCS: 80048; 83880; 99214 ==

== ENCOUNTER 2024-06-21 13:50 | Outpatient (CLI) | payer MEDICARE, OTHER, SELFPAY ==
--- NOTE | 2024-06-21 14:00 | USCV_ITS ---
Joshua Jimenez Jr Age: 79 Gender: M : 1945 Exam Date: 06/21/2024 14:25 Ordering Phys: Lyle Espinosa MD ([email or web address] Technologist: ERICA Exam Location: [facility] [place] Indication: stenosis rt side stent Risk Factors: Previous Vascular Surgery: Right Brachial BP: / Left Brachial BP: / Right Left Velocity (cm/s) Spectral Plaque Velocity (cm/s) Spectral Plaque Syst/Diast Broadening Syst/Diast Broadening 88.00/ 10.20 Prox CCA 73.20 / 15.90 56.30/ 14.90 Mid CCA 139.20/ 28.10 60.00/ 16.40 Distal CCA 154.40/ 19.40 54.00/ 14.90 Prox ICA 61.70 / 16.40 50.60/ 14.20 Mid ICA 42.40 / 12.00 47.00/ 14.90 Distal ICA 43.00 / 15.30 201.20 ECA 86.30 0.90 ICA/CCA 0.40 Antegrade Vertebral Antegrade 41.60/ 11.30 cm/s 18.50/ 5.60 cm/s Tri Subclavian Bi 104.0 116.5 0 0 FINDINGS comp / CONCLUSIONS Right ICA stenosis <50%. Right CCA/ICA stents are patent. Velocities are stable Left ICA stenosis <50%. Moderate atheromatous plaque left carotid bulb/ICA. Normal antegrade Doppler flow noted in the right vertebral artery. Slow antegrade flow noted in the left vertebral artery unchanged Ramon Schafer MD (Electronically Signed) Final Date: 21 June 2024 16:05 S
== END 2024-06-21 13:51 | disposition home or self-care (01) ==
LOC: RAD 13:51
PROVIDERS: PCP Internal Medicine; Visit Provider Internal Medicine Cardiovascular Disease
DX: I65.22 Occlusion and stenosis of left carotid artery (principal)
CPT/HCPCS: 93880

== ENCOUNTER 2024-08-08 11:16 | Outpatient (CLI) | payer MEDICARE, OTHER, SELFPAY ==
--- NOTE | 2024-08-08 11:17 | CT_ITS ---
WS: [id number] CT ABDOMEN AND PELVIS WITH CONTRAST HISTORY: LOWER ABDOMINAL PAIN TECHNIQUE: Imaging performed of the abdomen and pelvis with IV contrast. Single phase imaging of the abdomen. Coronal and sagittal reformats are submitted. All CT scans at [facility] use at [address] one of these dose optimization techniques: automated exposure control; mA and/or kV adjustment per patient size (includes targeted exams where dose is matched to clinical indication); or iterative re construction. IV CONTRAST: Omnipaque 350; 100 mL IV. Oral contrast: Yes. DLP: 520.66 mGy.cm COMPARISON: None available. Lower thorax: Lung bases are clear. Defibrillator noted in the RIGHT heart. No hiatal hernia. Liver/biliary system: Normal size with no intrahepatic dilatation. Gallbladder: Slightly contracted gallbladder with numerous stones. No adjacent inflammation. Pancreas: Normal size pancreas and pancreatic duct. No adjacent inflammation. Spleen: Numerous granulomata. Normal size. Adrenal glands: Mild thickening of the LEFT adrenal gland. Normal RIGHT adrenal gland. Right kidney: Normal size kidney. There are several cortical cysts with the largest in the mid kidney measuring 3.8 x 3.7 cm. Left kidney: Normal size kidney with several small cortical cysts. Largest in the lower pole measures 1.4 x 1.7 cm. Aorta: Mild atherosclerosis with no aneurysm. Lymphadenopathy: None. Free fluid: None. GI tract: Normally distended stomach. No small bowel obstruction. Normal appendix. There is mild circ umferential thickening of the cecum and ascending colon. No adjacent adenopathy. Cecal wall thickenin g may be due to under distention. No significant diverticular disease and no acute diverticulitis. Abdominal wall: Unremarkable abdominal wall. No hernia. Pelvis: Urinary bladder is well distended. Prostate gland encroaches into the base of the urinary hector dder. Ureteral orifices are closely associated with the prostate encroachment. No ureteral obstructio n. No adenopathy or ascites. Inguinal canals are patent bilaterally containing fat only. Bones: Lumbar spondylosis. No destructive bone lesions. CT/CT abdomen pelvis w con* [id number] IMPRESSION: 1. No renal obstruction or hydronephrosis. 2. Bilateral renal cyst. 3. No evidence for acute diverticulitis. 4. Mild circumferential wall thickening involving the cecum and ascending colo n. If patient has not had a colonoscopy recently colonoscopy should be obtained . The wall thickening may all be due to under distention of the colon. 5. Prostate gland encroachment into the base of the urinary bladder. 6. Cholelithiasis without evidence for acute cholecystitis.
[2024-08-08] MEDS: iohexol 350 mg/mL 500 mL Btl (per mL) PO (12:48)
[2024-08-08] MEDS: iohexol 350 mg/mL 500 mL Btl (per mL) IV (12:48)
== END 2024-08-08 11:17 | disposition home or self-care (01) ==
LOC: RAD 11:17
PROVIDERS: PCP Family Medicine; Visit Provider Family Medicine
DX: N28.1 Cyst of kidney, acquired (principal); R93.89 Abnormal findings on diagnostic imaging of other specified body structures; K80.20 Calculus of gallbladder without cholecystitis without obstruction; D73.89 Other diseases of spleen; I70.0 Atherosclerosis of aorta; R93.3 Abnormal findings on diagnostic imaging of other parts of digestive tract; N40.0 Benign prostatic hyperplasia without lower urinary tract symptoms; M47.896 Other spondylosis, lumbar region
CPT/HCPCS: 74177

== ENCOUNTER → 2024-11-20 11:28 | Outpatient (BNVA) | payer MEDICARE, OTHER, SELFPAY | PROVIDERS: PCP Family Medicine; Visit Provider Internal Medicine Cardiovascular Disease | DX: Z45.02 Encounter for adjustment and management of automatic implantable cardiac defibrillator (principal) | CPT/HCPCS: 93296 ==

== ENCOUNTER → 2024-12-16 10:23 | Outpatient (BNVA) | payer MEDICARE, OTHER, SELFPAY | PROVIDERS: PCP Family Medicine; Visit Provider Nurse Practitioner Family | DX: I25.10 Atherosclerotic heart disease of native coronary artery without angina pectoris (principal); I48.21 Permanent atrial fibrillation; Z79.02 Long term (current) use of antithrombotics/antiplatelets; Z79.82 Long term (current) use of aspirin; I27.20 Pulmonary hypertension, unspecified; E78.5 Hyperlipidemia, unspecified; I50.20 Unspecified systolic (congestive) heart failure; Z95.5 Presence of coronary angioplasty implant and graft; Z95.810 Presence of automatic (implantable) cardiac defibrillator; Z95.2 Presence of prosthetic heart valve; Z87.891 Personal history of nicotine dependence | CPT/HCPCS: 99214 ==

== ENCOUNTER → 2025-03-05 10:38 | Outpatient (BNVA) | payer MEDICARE, OTHER, SELFPAY | PROVIDERS: PCP Family Medicine; Visit Provider Internal Medicine Cardiovascular Disease | DX: Z45.02 Encounter for adjustment and management of automatic implantable cardiac defibrillator (principal) | CPT/HCPCS: 93296 ==

== ENCOUNTER 2025-06-10 08:00 | Emergency (ER) | payer MEDICARE, OTHER, SELFPAY ==
[2025-06-10 08:07] VITALS: BP 140/72; PULSE 50; RESP 18; TEMP 36.4; O2SAT 98
--- NOTE | 2025-06-10 08:08 | CTR_ITS ---
PROCEDURE INFORMATION: Exam: CT Head Without Contrast Exam date and time: 06/10/2025 8:50 AM Age: 80 years old Clinical indication: Injury or trauma; Fall; Blunt trauma (contusions or hematomas); Loss of consciousness unknown; Injury details: PT states he fell this am and hit the right side of his jaw and right side of neck. PT denies any blood thinners. ; Additional info: Fall, head injury TECHNIQUE: Imaging protocol: Computed tomography of the head without contrast. Radiation optimization: All CT scans at this facility use at least one of these dose optimization techniques: automated exposure control; mA and/or kV adjustment per patient size (includes targeted exams where dose is matched to clinical indication); or iterative reconstruction. COMPARISON: No relevant prior studies available. RADIATION DOSE METRICS: Total DLP (mGy-cm): 1121.78 FINDINGS: Brain: There is no mass effect, midline shift, acute hemorrhage, extra-axial fluid collection or acute lobar infarct. 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 Cerebral ventricles: No ventriculomegaly. Paranasal sinuses: Visualized sinuses are unremarkable. No fluid levels. Mastoid air cells: Visualized mastoid air cells are well aerated. Orbital cavities: The patient is post bilateral cataract surgery. Bones: Unremarkable. No acute fracture. Soft tissues: Unremarkable. CT/CT head wo con* [id number] IMPRESSION: No acute intracranial process.
--- NOTE | 2025-06-10 08:08 | CTR_ITS ---
PROCEDURE INFORMATION: Exam: CTA Neck With Contrast Exam date and time: 06/10/2025 8:56 AM Age: 80 years old Clinical indication: Injury or trauma; Fall; Blunt trauma; Head and neck; Injury details: PT states he fell this am and hit the right side of his jaw and right side of neck. PT denies any blood thinners. Prior surgery; Surgery date: 6+ months; Additional info: Fall, neck injury TECHNIQUE: Imaging protocol: Computed tomographic angiography of the neck with contrast. Exam focused on the cervical segments of the vasculature. 3D rendering (Not supervised by radiologist): MIP and/or 3D reconstructed images were created by the technologist. Radiation optimization: All CT scans at this facility use at least one of these dose optimization techniques: automated exposure control; mA and/or kV adjustment per patient size (includes targeted exams where dose is matched to clinical indication); or iterative reconstruction. Contrast material: OMNI 350; Contrast volume: 100 ml; Contrast route: INTRAVENOUS (IV); COMPARISON: CT facial bones wo con* [id number] 06/10/2025 8:52 AM RADIATION DOSE METRICS: Total DLP (mGy-cm): 355.21 FINDINGS: Tubes, catheters and devices: The patient has undergone endovascular stent grafting of the right carotid from the bulb into the proximal internal segment. The lumen of the graft is patent with minor intimal hypertrophy. Right common carotid artery: No stenosis. No dissection or occlusion. Right internal carotid artery: No stenosis of the extracranial segment. No dissection or occlusion. Right external carotid artery: No occlusion or stenosis of the origin. Left common carotid artery: No stenosis. No dissection or occlusion. Left internal carotid artery: There is soft atheromatous plaque and short-segment fenestrated dissection at the origin of the left internal carotid artery causing less than 40% stenosis. Left external carotid artery: No occlusion or stenosis of the origin. Right vertebral artery: No stenosis. No dissection or occlusion. 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 Soft tissues: Normal. No significant soft tissue swelling. Bones/joints: Cervical spondylosis is noted. Bilateral mandible fractures are present. Please correlate with report for CT of the facial bones for more complete description. CT/CT angio neck [id number] IMPRESSION: Patent endovascular stent graft in the right internal carotid. 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 REFERENCES: NASCET CRITERIA. The degree of stenosis in the cervical segment of the internal carotid artery is based on NASCET criteria. Normal is no stenosis. Mild is less than 50% stenosis. Moderate is 50-69% stenosis. Severe is 70% to 99% stenosis. Total occlusion is no detectable patent lumen.
--- NOTE | 2025-06-10 08:08 | CTR_ITS ---
PROCEDURE INFORMATION: Exam: CT Maxillofacial Without Contrast Exam date and time: 06/10/2025 8:52 AM Age: 80 years old Clinical indication: Injury or trauma; Fall; Blunt trauma (contusions or hematomas); Injury details: PT states he fell this am and hit the right side of his jaw and right side of neck. PT denies any blood thinners. ; Additional info: Trauamatic facial pain TECHNIQUE: Imaging protocol: Computed tomography of the face without contrast. Radiation optimization: All CT scans at this facility use at least one of these dose optimization techniques: automated exposure control; mA and/or kV adjustment per patient size (includes targeted exams where dose is matched to clinical indication); or iterative reconstruction. COMPARISON: CT head wo con* [id number] 06/10/2025 8:50 AM RADIATION DOSE METRICS: Total DLP (mGy-cm): 678.68 FINDINGS: Tubes, catheters and devices: Endovascular stent graft is noted along the course of the carotid on the right. Paranasal sinuses: No air-fluid levels. Orbital cavities: The patient is post bilateral cataract surgery. Bones: There is comminuted displaced fracture of the mandibular angles bilaterally. It is noted that the fracture line traverses the inferior alveolar canal on the right. Soft tissues: Unremarkable. CT/CT facial bones wo con* [id number] IMPRESSION: Bilateral mandible fractures.
--- OUTSIDE RECORDS SUMMARY | 2025-06-10 08:09 | XMS_ITS | Data Portability ---
Author Organization MARIANELA Lenny Humphreys [facility] Address [address] [address] Care Team Providers Care Lawn Technician Name Role Phone VIOLETA LUIS Primary Care Provider [phone] Assessment No assessment recorded. Plan of Treatment Reminders Order Date Submit Date Provider Last Modified By Organization Details Last Modified Time Details Appointments RECHECK 15 2024 01:30P M Violeta Luis MD Not available Not available Not available Lab urinalysi s, complete 2024 025 [facility], [address], [place], [address], 07/23/2024 16:09:26 culture, urine 2024 025 [facility], [address] [address], [address] [place], [address], 07/25/2024 04:45:25 CMP, serum or plasma 2024 025 [facility], [address], [place], [address], 07/23/2024 16:38:14 CBC 2024 025 [facility], [address], [place], [address], 07/23/2024 16:09:23 HbA1c (hemoglob in A1c), blood 2023 024 [facility] ([facility] [address] [place], [address], 01/08/2024 15:42:23 CMP, serum or plasma 2023 024 [facility], [address], [place], [address], 01/08/2024 17:53:42 lipid panel, blood 2023 024 [facility], [address], [place], [address], 01/08/2024 17:52:27 CBC 2023 024 [facility], [address] [facility] , [place], [address], 01/08/2024 18:00:38 HbA1c (hemoglob in A1c), blood 2022 023 [facility] ([facility]), [address] [place], [address], 07/05/2023 15:04:01 CMP, serum or plasma 2022 023 [facility], [address], [place], [address], 07/06/2023 11:25:54 CBC 2022 023 [facility], [address], [place], [address], 07/06/2023 11:25:53 Referral None recorded. Procedures None recorded. Surgeries None recorded. Imaging CT, abdomen + pelvis, w/ contrast 2024 025 [facility], [address] [place], [address], 07/31/2024 08:59:10 Medication Orders None recorded. Patient TargetsNo targets recorded. Patient Instructions Encounter Date Encounter Id Patient Instructions Last Modified By Organization Details Last Modified Time 07/05/2023 [id number] follows at cardiology; he elected not to do stress test bp controlled labs today Not available 07/05/2023 12:04:05 01/08/2024 [id number] reviewed blood pressures from home and mostly controlled feeling well improved EF; follows with cardiology [email or web address] Not available 01/08/2024 14:53:51 07/08/2024 [id number] follows with cardiology regularly [place] [facility] will request he wishes to establish with Dr. Luis; rec appt in 6 months [email or web address] Not available 07/08/2024 14:11:38 Reason for Referral None Reported. Results Created Date Observation Date Name Description Value Unit Range Abnormal Flag Note LastModifiedBy Organization Detail LastModifiedTime 07/05/2007/05/2023 CBC WBC 7.3 x10 4.5-10 .5 Not Available [facility] [address] [facility] 1, [place], [address], 07/06/2023 11:25:53 07/05/20 23 07/05/2023 CBC RBC 4.57 x10 4.30-5 .90 Not Available [facility] [address] [facility] 1, [place], [address], 07/06/2023 11:25:53 07/05/20 23 07/05/2023 CBC HGB 14.6 g/dL 13.5-1 8.0 Not Available [facility] [address], [place], [address], 07/06/2023 11:25:53 07/05/20 23 07/05/2023 CBC HCT 41.8 % 35.0-6 0.0 Not Available [facility] [address] [facility], [place], [address], 07/06/2023 11:25:53 07/05/20 23 07/05/2023 CBC MCV 91.5 fL 80.0-9 9.9 Not Available [facility] [address] [facility] 1, [place], [address], 07/06/2023 11:25:53 07/05/20 23 07/05/2023 CBC MCH 32.0 pg 27.0-3 2.0 Not Available [facility] [address] [facility], [place], [address], 07/06/2023 11:25:53 07/05/20 23 07/05/2023 CBC MCHC 35.0 g/dL 32.0-3 6.0 Not Available [facility] [address] [facility], [place], [address], 07/06/2023 11:25:53 07/05/20 23 07/05/2023 CBC RDW 13.4 % 11.5-1 4.5 Not Available [facility] [address] [facility], [place], [address], 07/06/2023 11:25:53 07/05/20 23 07/05/2023 CBC plt 207.0 x10 150.0- 451.0 Not Available [facility] [address] [facility], [place], [address], 07/06/2023 11:25:53 07/05/20 23 07/05/2023 CBC lymphocytes % 13.7 % 20.0-5 0.0 low Not Available [facility] [address] [facility], [place], [address], 07/06/2023 11:25:53 07/05/20 23 07/05/2023 CBC granulcytes % 71.8 % 30.0-7 0.0 high Not Available [facility] [address] [facility], [place], [address], 07/06/2023 11:25:53 07/05/20 23 07/05/2023 CBC monocytes % 10.8 % 2.0-10 .0 high Not Available [facility] [address] [facility], [place], [address], 07/06/2023 11:25:53 07/05/20 23 07/05/2023 CBC granulcytes# 5.3 x10 Not Gerri ilable [facility] [address] [facility], [place], [address], 07/06/2023 11:25:53 07/05/20 23 07/05/2023 CBC lymphocytes # 1.0 x10 Not Available [facility] [address] [facility] 1, [place], [address], 07/06/2023 11:25:53 07/05/20 23 07/05/2023 CBC monocytes # 0.8 x10 Not Avai lable [facility] [address] [facility] 1, [place], [address], 07/06/2023 11:25:53 07/05/20 23 07/05/2023 CMP (MALE ) glucose 106.0 mg/dL 60.0-9 9.0 high Not Available [facility] [address] [facility] 1, [place], [address], 07/06/2023 11:25:54 07/05/20 23 07/05/2023 CMP (MALE ) BUN (blood urea nitrogen) 13.0 mg/dL 10.0-2 6.0 Not Available [facility] [address] [facility] 1, [place], [address], 07/06/2023 11:25:54 07/05/20 23 07/05/2023 CMP (MALE ) creatinine (serum) 1.1 mg/dL 0.4-1. 5 Not Available [facility] [address], [place], [address], 07/06/2023 11:25:54 07/05/20 23 07/05/2023 CMP (MALE ) BUN/creatini ne ratio 11.82 ratio Not Available [facility] [address] [facility] 1, [place], [address], 07/06/2023 11:25:54 07/05/20 23 07/05/2023 CMP (MALE ) eGFR calculated 68.8 Not Available [facility] [address], [place], [address], 07/06/2023 11:25:54 07/05/20 23 07/05/2023 CMP (MALE ) total protein 7.2 g/dL 6.0-8. 5 Not Available [facility] [address], [place], [address], 07/06/2023 11:25:54 07/05/20 23 07/05/2023 CMP (MALE ) total bilirubin 0.5 mg/dL 0.2-1. 3 Not Available [facility] [address] [facility] 1, [place], [address], 07/06/2023 11:25:54 07/05/20 23 07/05/2023 CMP (MALE ) albumin 4.2 g/dL 3.5-5. 5 Not Available [facility] [address], [place], [address], 07/06/2023 11:25:54 07/05/20 23 07/05/2023 CMP (MALE ) globulin 3.0 calc Not Available [facility] [address] [facility] 1, [place], [address], 07/06/2023 11:25:54 07/05/20 23 07/05/2023 CMP (MALE ) AST (SGOT) 24.0 U/L 0.0-46 .0 Not Available [facility] [address] [facility] 1, [place], [address], 07/06/2023 11:25:54 07/05/20 23 07/05/2023 CMP (MALE ) altv (SGPT) 20.0 U/L 13.0-6 9.0 normal Not Available [facility] [address] [facility] 1, [place], [address], 07/06/2023 11:25:54 07/05/20 23 07/05/2023 CMP (MALE ) A/G ratio 1.4 ratio Not Available [facility] [address] [facility] 1, [place], [address], 07/06/2023 11:25:54 07/05/20 23 07/05/2023 CMP (MALE ) ALP phos 69.0 U/L 30.0-1 40.0 normal Not Available [facility] [address] [facility] 1, [place], [address], 07/06/2023 11:25:54 07/05/20 23 07/05/2023 CMP (MALE ) calcium 9.3 mg/dL 8.4-10 .5 Not Available [facility] [address] [facility] 1, [place], [address], 07/06/2023 11:25:54 07/05/20 23 07/05/2023 CMP (MALE ) sodium 135.0 mmol/ L 136.0- 145.0 low Not Available [facility] [address] [facility] 1, [place], [address], 07/06/2023 11:25:54 07/05/20 23 07/05/2023 CMP (MALE ) potassium 4.3 mmol/ L 3.5-5. 1 Not Available [facility] [address] [facility] 1, [place], [address], 07/06/2023 11:25:54 07/05/20 23 07/05/2023 CMP (MALE ) chloride 103.0 mmol/ L 98.0-1 10.0 normal Not Available [facility] [address] [facility] 1, [place], [address], 07/06/2023 11:25:54 07/05/20 23 07/05/2023 CMP (MALE ) C02 22.0 mmol/ L 22.0-3 1.0 Not Available [facility] [address] [facility] 1, [place], [address], 07/06/2023 11:25:54 07/05/20 23 07/05/2023 CMP (MALE ) anion gap 10.0 calc Not Available [facility] [address] [facility] 1, [place], [address], 07/06/2023 11:25:54 07/05/20 23 07/05/2023 CMP (MALE ) osmolality 279.6 calc Not Available [facility] [address] [facility] 1, [place], [address], 07/06/2023 11:25:54 07/05/20 23 07/05/2023 HbA1c (hemo globi n A1c), blood HbA1c 5.6 Not Available [facility] ([facility]) [address] [place], [address], 07/05/2023 12:01:46 01/08/20 24 01/08/2024 LIPID PROFI LE (MALE ) cholesterol 126.0 mg/dL 0.0-20 0.0 Not Available [facility] [address] [facility] 1, [place], [address], 01/08/2024 17:52:27 01/08/20 24 01/08/2024 LIPID PROFI LE (MALE ) trig 173.0 mg/dL 0.0-15 0.0 high Not Available [facility] [address] [facility] 1, [place], [address], 01/08/2024 17:52:27 01/08/20 24 01/08/2024 LIPID PROFI LE (MALE ) HDL - direct 34.0 mg/dL >40.0 low Not Available [facility] [address] [facility] 1, [place], [address], 01/08/2024 17:52:27 01/08/20 24 01/08/2024 LIPID PROFI LE (MALE ) VLDL - direct 34.6 mg/dL Not Available [facility] [address] [address], [place], [address], 01/08/2024 17:52:27 01/08/20 24 01/08/2024 LIPID PROFI LE (MALE ) LDL - direct 57.4 mg/dL 0.0-13 0.0 Not Available [facility] [address] [address], [place], [address], 01/08/2024 17:52:27 01/08/20 24 01/08/2024 CMP (MALE ) glucose 130.0 mg/dL 60.0-9 9.0 high Not Available [facility] [address] [facility] 1, [place], [address], 01/08/2024 17:53:42 01/08/20 24 01/08/2024 CMP (MALE ) BUN (blood urea nitrogen) 20.0 mg/dL 10.0-2 6.0 Not Available [facility] [address] [address], [place], [address], 01/08/2024 17:53:42 01/08/20 24 01/08/2024 CMP (MALE ) creatinine (serum) 1.1 mg/dL 0.4-1. 5 Not Available [facility] [address] [facility] 1, [place], [address], 01/08/2024 17:53:42 01/08/20 24 01/08/2024 CMP (MALE ) BUN/creatini ne ratio 18.18 ratio Not Available [facility] [address] [facility] 1, [place], [address], 01/08/2024 17:53:42 01/08/20 24 01/08/2024 CMP (MALE ) eGFR calculated 68.6 Not Available [facility] [address] [facility] 1, [place], [address], 01/08/2024 17:53:42 01/08/20 24 01/08/2024 CMP (MALE ) total protein 6.8 g/dL 6.0-8. 5 Not Available [facility] [address] [facility] 1, [place], [address], 01/08/2024 17:53:42 01/08/20 24 01/08/2024 CMP (MALE ) total bilirubin 0.5 mg/dL 0.2-1. 3 Not Available [facility] [address] [facility], [place], [address], 01/08/2024 17:53:42 01/08/20 24 01/08/2024 CMP (MALE ) albumin 4.2 g/dL 3.5-5. 5 Not Available [facility] [address] [facility] 1, [place], [address], 01/08/2024 17:53:42 01/08/20 24 01/08/2024 CMP (MALE ) globulin 2.6 calc Not Available [facility] [address] [facility], [place], [address], 01/08/2024 17:53:42 01/08/20 24 01/08/2024 CMP (MALE ) AST (SGOT) 32.0 U/L 0.0-46 .0 Not Available [facility] [address] [facility] 1, [place], [address], 01/08/2024 17:53:42 01/08/20 24 01/08/2024 CMP (MALE ) altv (SGPT) 19.0 U/L 13.0-6 9.0 normal Not Available [facility] [address] [address], [place], [address], 01/08/2024 17:53:42 01/08/20 24 01/08/2024 CMP (MALE ) A/G ratio 1.6 ratio Not Available [facility] [address] [address], [place], [address], 01/08/2024 17:53:42 01/08/20 24 01/08/2024 CMP (MALE ) ALP phos 65.0 U/L 30.0-1 40.0 normal Not Available [facility] [address] [address], [place], [address], 01/08/2024 17:53:42 01/08/20 24 01/08/2024 CMP (MALE ) calcium 9.0 mg/dL 8.4-10 .5 Not Available [facility] [address] [address], [place], [address], 01/08/2024 17:53:42 01/08/20 24 01/08/2024 CMP (MALE ) sodium 139.0 mmol/ L 136.0- 145.0 Not Available [facility] [address] [address], [place], [address], 01/08/2024 17:53:42 01/08/20 24 01/08/2024 CMP (MALE ) potassium 4.0 mmol/ L 3.5-5. 1 Not Available [facility] [address] [facility] 1, [place], [address], 01/08/2024 17:53:42 01/08/20 24 01/08/2024 CMP (MALE ) chloride 111.0 mmol/ L 98.0-1 10.0 abnormal Not Available [facility] [address] [facility] 1, [place], [address], 01/08/2024 17:53:42 01/08/20 24 01/08/2024 CMP (MALE ) C02 24.0 mmol/ L 22.0-3 1.0 Not Available [facility] [address] [facility] 1, [place], [address], 01/08/2024 17:53:42 01/08/20 24 01/08/2024 CMP (MALE ) anion gap 4.0 calc Not Available [facility] [address] [facility] 1, [place], [address], 01/08/2024 17:53:42 01/08/20 24 01/08/2024 CMP (MALE ) osmolality 291.2 calc Not Available [facility] [address] [facility] 1, [place], [address], 01/08/2024 17:53:42 01/08/2001/08/2024 CBC WBC 7.0 x10 4.5-10 .5 Not Available [facility] [address] [facility] 1, [place], [address], 01/08/2024 18:00:38 01/08/20 24 01/08/2024 CBC RBC 4.54 x10 4.30-5 .90 Not Available [facility] [address] [facility] 1, [place], [address], 01/08/2024 18:00:38 01/08/20 24 01/08/2024 CBC HGB 14.5 g/dL 13.5-1 8.0 Not Available [facility] [address] [facility] 1, [place], [address], 01/08/2024 18:00:38 01/08/20 24 01/08/2024 CBC HCT 41.6 % 35.0-6 0.0 Not Available [facility] [address] [facility], [place], [address], 01/08/2024 18:00:38 01/08/20 24 01/08/2024 CBC MCV 91.7 fL 80.0-9 9.9 Not Available [facility] [address] [facility], [place], [address], 01/08/2024 18:00:38 01/08/20 24 01/08/2024 CBC MCH 32.0 pg 27.0-3 2.0 Not Available [facility] [address] [facility] 1, [place], [address], 01/08/2024 18:00:38 01/08/20 24 01/08/2024 CBC MCHC 34.9 g/dL 32.0-3 6.0 Not Available [facility] [address] [facility], [place], [address], 01/08/2024 18:00:38 01/08/20 24 01/08/2024 CBC RDW 13.4 % 11.5-1 4.5 Not Available [facility] [address] [facility], [place], [address], 01/08/2024 18:00:38 01/08/20 24 01/08/2024 CBC plt 235.8 x10 150.0- 451.0 Not Available [facility] [address] [facility] [address] [address], [place], [address], 01/08/2024 18:00:38 01/08/20 24 01/08/2024 CBC lymphocytes % 16.1 % 20.0-5 0.0 low Not Available [facility] [address] [address], [place], [address], 01/08/2024 18:00:38 01/08/20 24 01/08/2024 CBC granulcytes % 70.0 % 30.0-7 0.0 Not Available [facility] [address] [address], [place], [address], 01/08/2024 18:00:38 01/08/20 24 01/08/2024 CBC monocytes % 9.1 % 2.0-16 .0 Not Available [facility] [address] [address], [place], [address], 01/08/2024 18:00:38 01/08/20 24 01/08/2024 CBC granulcytes# 4.9 x10 Not Gerri ilable [facility] [address] [address], [place], [address], 01/08/2024 18:00:38 01/08/20 24 01/08/2024 CBC lymphocytes # 1.1 x10 Not Available [facility] [address] [address], [place], [address], 01/08/2024 18:00:38 01/08/20 24 01/08/2024 CBC monocytes # 0.6 x10 Not Avai lable [facility] [address] [address], [place], [address], 01/08/2024 18:00:38 01/08/20 24 01/08/2024 HbA1c (hemo globi n A1c), blood HbA1c 5.2 Not Available [facility] ([facility]) [address] [place], [address], 01/08/2024 14:54:01 07/23/19 25 07/23/2024 CBC WBC 8.0 x10 4.5-10 .5 Not Available [facility] [address] [address], [place], [address], 07/23/2024 16:09:23 07/23/19 25 07/23/2024 CBC RBC 4.99 x10 4.30-5 .90 Not Available [facility] [address] [address], [place], [address], 07/23/2024 16:09:23 07/23/19 25 07/23/2024 CBC HGB 15.5 g/dL 13.5-1 8.0 Not Available [facility] [address] [address], [place], [address], 07/23/2024 16:09:23 07/23/19 25 07/23/2024 CBC HCT 45.5 % 35.0-6 0.0 Not Available [facility] [address] [address], [place], [address], 07/23/2024 16:09:23 07/23/19 25 07/23/2024 CBC MCV 91.1 fL 80.0-9 9.9 Not Available [facility] [address] [address], [place], [address], 07/23/2024 16:09:23 07/23/19 25 07/23/2024 CBC MCH 31.1 pg 27.0-3 2.0 Not Available [facility] [address] [address], [place], [address], 07/23/2024 16:09:23 07/23/19 25 07/23/2024 CBC MCHC 34.1 g/dL 32.0-3 6.0 Not Available [facility] [address] [facility], [place], [address], 07/23/2024 16:09:23 07/23/19 25 07/23/2024 CBC RDW 13.9 % 11.5-1 4.5 Not Available [facility] [address] [facility], [place], [address], 07/23/2024 16:09:23 07/23/19 25 07/23/2024 CBC plt 218.5 x10 150.0- 451.0 Not Available [facility] [address] [facility] 1, [place], [address], 07/23/2024 16:09:23 07/23/19 25 07/23/2024 CBC lymphocytes % 12.8 % 20.0-5 0.0 low Not Available [facility] [address] [facility], [place], [address], 07/23/2024 16:09:23 07/23/19 25 07/23/2024 CBC granulcytes % 72.9 % 30.0-7 0.0 high Not Available [facility] [address] [facility], [place], [address], 07/23/2024 16:09:23 07/23/19 25 07/23/2024 CBC monocytes % 10.8 % 2.0-16 .0 Not Available [facility] [address] [facility] 1, [place], [address], 07/23/2024 16:09:23 07/23/19 25 07/23/2024 CBC granulcytes# 5.8 x10 Not Gerri ilable [facility] [address] [facility], [place], [address], 07/23/2024 16:09:23 07/23/19 25 07/23/2024 CBC lymphocytes # 1.0 x10 Not Available [facility] [address] [facility], [place], [address], 07/23/2024 16:09:23 07/23/19 25 07/23/2024 CBC monocytes # 0.9 x10 Not Avai lable [facility] [address] [facility], [place], [address], 07/23/2024 16:09:23 07/23/19 25 07/23/2024 URINA LYSIS WITH MICRO color YELLOW Not Available [facility] [address] [facility], [place], [address], 07/23/2024 16:09:26 07/23/19 25 07/23/2024 URINA LYSIS WITH MICRO clarity CLEAR Not Available [facility] [address] [facility], [place], [address], 07/23/2024 16:09:26 07/23/19 25 07/23/2024 URINA LYSIS WITH MICRO glu NEGATI VE Not Available [facility] [address] [facility], [place], [address], 07/23/2024 16:09:26 07/23/19 25 07/23/2024 URINA LYSIS WITH MICRO bili NEGATI VE Not Available [facility] [address] [facility], [place], [address], 07/23/2024 16:09:26 07/23/19 25 07/23/2024 URINA LYSIS WITH MICRO ket NEGATI VE Not Available [facility] [address] [facility], [place], [address], 07/23/2024 16:09:26 07/23/19 25 07/23/2024 URINA LYSIS WITH MICRO S.g 1.020 1.005- 1.025 Not Available [facility] [address] [facility], [place], [address], 07/23/2024 16:09:26 07/23/19 25 07/23/2024 URINA LYSIS WITH MICRO pH 7.5 5.0-7. 0 high Not Available [facility] [address] [facility], [place], [address], 07/23/2024 16:09:26 07/23/19 25 07/23/2024 URINA LYSIS WITH MICRO pro 1+ Not Available [facility] [address] [facility], [place], [address], 07/23/2024 16:09:26 07/23/19 25 07/23/2024 URINA LYSIS WITH MICRO uro 0.2 E.U./D L Not Available [facility] [address] [facility], [place], [address], 07/23/2024 16:09:26 07/23/19 25 07/23/2024 URINA LYSIS WITH MICRO nit NEGATI VE Not Available [facility] [address] [facility], [place], [address], 07/23/2024 16:09:26 07/23/19 25 07/23/2024 URINA LYSIS WITH MICRO blo NEGATI VE Not Available [facility] [address] [facility], [place], [address], 07/23/2024 16:09:26 07/23/19 25 07/23/2024 URINA LYSIS WITH MICRO nicole NEGATI VE Not Available [facility] [address] [facility], [place], [address], 07/23/2024 16:09:26 07/23/19 25 07/23/2024 URINA LYSIS WITH MICRO WBC 1-2 abnormal Not Available [facility] [place] [facility] [address] [facility] [address], [place], [address], 07/23/2024 16:09:26 07/23/19 25 07/23/2024 URINA LYSIS WITH MICRO RBC 0-1 Not Available [facility] [address] [facility], [place], [address], 07/23/2024 16:09:26 07/23/19 25 07/23/2024 URINA LYSIS WITH MICRO epi cells 0-1 Not Available [facility] [address] [facility] [address], [place], [address], 07/23/2024 16:09:26 07/23/19 25 07/23/2024 URINA LYSIS WITH MICRO bacteria 1+ MUCUS THREAD S abnormal Not Available [facility] [address] [facility], [place], [address], 07/23/2024 16:09:26 07/23/19 25 07/23/2024 URINA LYSIS WITH MICRO other NEGATI VE Not Available [facility] [address] [facility] [address], [place], [address], 07/23/2024 16:09:26 07/23/19 25 07/23/2024 CMP (MALE ) glucose 120.0 mg/dL 60.0-9 9.0 high Not Available [facility] [address] [facility] [place], [address], 07/23/2024 16:38:14 07/23/19 25 07/23/2024 CMP (MALE ) BUN (blood urea nitrogen) 12.0 mg/dL 10.0-2 6.0 Not Available [facility] [address] [facility] [address], [place], [address], 07/23/2024 16:38:14 07/23/19 25 07/23/2024 CMP (MALE ) creatinine (serum) 0.8 mg/dL 0.4-1. 5 Not Available [facility] [address] [facility] [address], [place], [address], 07/23/2024 16:38:14 07/23/19 25 07/23/2024 CMP (MALE ) BUN/creatini ne ratio 15.00 ratio Not Available [facility] [address] [facility], [place], [address], 07/23/2024 16:38:14 07/23/19 25 07/23/2024 CMP (MALE ) eGFR calculated 99.1 Not Available [facility] [address] [facility], [place], [address], 07/23/2024 16:38:14 07/23/19 25 07/23/2024 CMP (MALE ) total protein 7.7 g/dL 6.0-8. 5 Not Available [facility] [address] [facility], [place], [address], 07/23/2024 16:38:14 07/23/19 25 07/23/2024 CMP (MALE ) total bilirubin 0.4 mg/dL 0.2-1. 3 Not Available [facility] [address] [place] [facility] 1, [place], [address], 07/23/2024 16:38:14 07/23/19 25 07/23/2024 CMP (MALE ) albumin 4.7 g/dL 3.5-5. 5 Not Available [facility] [address] [place] [facility] 1, [place], [address], 07/23/2024 16:38:14 07/23/1907/23/2024 CMP (MALE ) globulin 3.0 calc Not Available [facility] [place] [facility] [facility] [address] [facility] 1, [place], [address], 07/23/2024 16:38:14 07/23/19 25 07/23/2024 CMP (MALE ) AST (SGOT) 25.0 U/L 0.0-46 .0 Not Available [facility] [address] [facility], [place], [address], 07/23/2024 16:38:14 07/23/19 25 07/23/2024 CMP (MALE ) altv (SGPT) 22.0 U/L 13.0-6 9.0 normal Not Available [facility] [address] [facility], [place], [address], 07/23/2024 16:38:14 07/23/19 25 07/23/2024 CMP (MALE ) A/G ratio 1.6 ratio Not Available [facility] [address] [facility] 1, [place], [address], 07/23/2024 16:38:14 07/23/19 25 07/23/2024 CMP (MALE ) ALP phos 79.0 U/L 30.0-1 40.0 normal Not Available [facility] [address] [facility] 1, [place], [address], 07/23/2024 16:38:14 07/23/19 25 07/23/2024 CMP (MALE ) calcium 9.1 mg/dL 8.4-10 .5 Not Available [facility] [address] [facility] 1, [place], [address], 07/23/2024 16:38:14 07/23/19 25 07/23/2024 CMP (MALE ) sodium 141.0 mmol/ L 136.0- 145.0 Not Available [facility] [address] [facility] 1, [place], [address], 07/23/2024 16:38:14 07/23/19 25 07/23/2024 CMP (MALE ) potassium 4.1 mmol/ L 3.5-5. 1 Not Available [facility] [address] [facility] [address], [place], [address], 07/23/2024 16:38:14 07/23/19 25 07/23/2024 CMP (MALE ) chloride 105.0 mmol/ L 98.0-1 10.0 normal Not Available [facility] [address] [facility] [address], [place], [address], 07/23/2024 16:38:14 07/23/19 25 07/23/2024 CMP (MALE ) C02 27.0 mmol/ L 22.0-3 1.0 Not Available [facility] [address] [facility] 1, [place], [address], 07/23/2024 16:38:14 07/23/19 25 07/23/2024 CMP (MALE ) anion gap 9.0 calc Not Available [facility] [address] [facility] [address], [place], [address], 07/23/2024 16:38:14 07/23/19 25 07/23/2024 CMP (MALE ) osmolality 292.0 calc Not Available [facility] [address] [facility] 1, [place], [address], 07/23/2024 16:38:14 07/23/19 25 07/25/2024 CULTU RE, URINE , ROUTI NE culture, urine, routine SEE NOTE CULTU RE, URINE , ROUTI NE Micro Numbe r: [id number] Test Statu s: Final Speci men Sourc e: Urine Speci men Quali ty: Adequ ate Resul t: Mixed genit al sumeet isola jennifer. These super ficia l bacte suraj are not indic ative of a urina ry tract infec tion. No furth er organ ism ident ifica tion is warra nted on this speci men. If clini [place] indic ated, recol lect clean -catc h, mid-s tream urine and trans aimee immed iatel y to Urine Cultu re Trans port Tube. Not Available [facility] [address], [place], [address], 07/25/2024 04:45:24 08/08/19 25 08/08/2024 CT, abdom en + pelvi s, w/ contr ast No observ ation record ed. [facility] [address] [place], [address], 08/09/2024 12:41:29 Result Notes None recorded. Problems Name Problem SNOMED Code Status Onset Date Resolution Date Notes Provider Name and Address Organization Details Recorded Time Erectile dysfunct ion 833637385 Active 2021 IMPOTENC E OF ORGANIC ORIGIN; Recorded 07/11/20 1:29PM by Renay Duarte RN, Office Visit; Promoted ; acuity set as *; Valeria garcia [facility] 5 14:24:33 Fracture Active 2021 Fracture ; Left ankle/fo ot; 07/11/20 1:29PM by Renay Duarte RN, Office Visit; Promoted ; acuity set as *; Valeria garcia [facility] 5 14:24:55 Non-smok er's second hand smoke syndrome 938615709 Active 2021 DISEASE OF LUNG; Recorded 07/11/20 22 1:29PM by Renay Duarte RN, Office Visit; Promoted ; acuity set as *; Not Available [facility] 3 03:11:00 Nicotine dependen ce 40237739 Completed 202101/13/2025 TOBACCO USE DISORDER ; Impressi on: quit smoking carine 4 months ago.; Recorded 07/11/20 1:29PM by Renay Duarte RN, Office Visit; Promoted ; acuity set as *; Removal Reason: quit [address] [facility] 06/30/202 5 14:25:24 Congesti ve heart failure 53350401 Active 2022 [facility] 14:24:28 Atrial fibrilla tion 99369097 Active 2022 [facility] 5 14:23:58 Chronic obstruct mynor pulmonar y disease 03326500 Active 2022 [facility] 5 14:24:17 Hypergly cemia 94129845 Active 2022 [facility] 5 14:24:45 Lower abdomina l pain 74879880 Active 2024 [facility] 5 14:24:50 Benign prostati c hyperpla kendall 353545933 Active 2024 [facility] 5 14:24:11 Problem Notes None recorded. Medical Equipment None Reported. Allergies No known drug allergies Medications Name Sig Start Date Stop Date Status Note LastModified by Organization Details LastModified Time clopidogr el 75 mg tablet TAKE 1 TABLET BY MOUTH EVERY DAY active Not Available Not Available No t Available omeprazol e 40 mg capsule,d elayed release take 1 capsule BY MOUTH EVERY DAY active Not Available Not Available No t Available spironola ctone 25 mg tablet daily 07/05 completed 0; Recorded 07/11/20 22 1:30PM by Renay Duarte RN, Office Visit; Not Available Not Available Not Available tamsulosi n 0.4 mg capsule take 1 capsule BY MOUTH EVERY DAY AT BEDTIME 01/13 completed Not Available Not Available Not Available losartan 25 mg tablet TAKE 1 TABLET BY MOUTH EVERY DAY 01/13 completed Not Available Not Available Not Available nitroglyc duane 0.4 mg sublingua l tablet DISSOLVE 1 TABLET UNDER THE TONGUE EVERY 5 MINUTES NEEDED FOR CHEST PAIN. DO NOT EXCEED A TOTAL OF 3 DOSES IN 15 MINUTES. active Not Available Not Available No t Available monteluka st 10 mg tablet TAKE 1 TABLET BY MOUTH EVERY DAY NEEDED active Not Available Not Available No t Available metoprolo l succinate ER 25 mg tablet,ex tended release 24 hr TAKE 1 TABLET BY MOUTH EVERY DAY active Not Available Not Available No t Available rosuvasta tin 20 mg tablet TAKE 1 TABLET BY MOUTH EVERY DAY active Not Available Not Available No t Available Plavix daily 07/05 completed Cardio.; 0; Recorded 07/11/20 1:30PM by Renay Duarte RN, Office Visit; Not Available Not Available Not Available metoprolo l succinate daily 07/05 completed 0; Recorded 07/11/20 1:30PM by Renay Duarte RN, Office Visit; Not Available Not Available Not Available Aspirin Childrens daily active 0; Recorded 07/11/20 1:30PM by Renay Duarte RN, Office Visit; Not Available Not Available Not Available Dulcolax Stool Softener (dss) daily active 0; Recorded 07/11/20 1:30PM by Renay Duarte RN, Office Visit; Not Available Not Available Not Available krill oil daily active 0; Recorded 07/11/20 1:30PM by Renay Duarte RN, Office Visit; Not Available Not Available Not Available Entresto 97 mg-103 mg tablet take one tablet BY MOUTH TWICE DAILY 07/05 completed Not Available Not Available Not Available Entresto 49 mg-51 mg tablet TAKE ONE TABLET BY MOUTH TWICE DAILY active Not Available Not Available No t Available Entresto 24 mg-26 mg tablet TAKE 1 TABLET BY MOUTH TWICE DAILY 07/05 completed Not Available Not Available Not Available Entresto daily 07/05 completed 0; Recorded 07/11/20 1:30PM by Renay Duarte RN, Office Visit; Not Available Not Available Not Available losartan potassium (bulk) daily 07/05 completed 0; Recorded 07/11/20 22 1:30PM by Renay Duarte RN, Office Visit; Not Available Not Available Not Available Vitals Date Recorded Body height Body mass index (BMI) Body weight Body temperature Oxygen saturation Heart rate Systolic And Diastolic Provider Name and Address Organization Details Last Updated DateTime 5 175.26 cm 28.6 kg/m2 24464.1 3 g 97.6 [degF] 99 % 79 /min 134/78 mm[Hg] BECK RICHARD [facility] 5 14:58:16 Date Recorded Body height Body mass index (BMI) Body weight Respiratory rate Heart rate Oxygen saturation Systolic And Diastolic Provider Name and Address Organization Details Last Updated DateTime 4 175.26 cm 29.8 kg/m2 62575.6 6 g 16 /min 88 /min 95 % 134/70 mm[Hg] JORGE DUARTE [facility] 4 14:42:22 Date Recorded Body height Body mass index (BMI) Body weight Respiratory rate Heart rate Oxygen saturation Systolic And Diastolic Provider Name and Address Organization Details Last Updated DateTime 3 175.26 cm 30.4 kg/m2 64359.0 3 g 18 /min 66 /min 98 % 136/72 mm[Hg] JORGE DUARTE [facility] 3 11:49:18 Date Recorded Body height Body mass index (BMI) Body weight Respiratory rate Heart rate Oxygen saturation Systolic And Diastolic Provider Name and Address Organization Details Last Updated DateTime 4 175.26 cm 29.1 kg/m2 68660.7 g 20 /min 106 /min 98 % 128/70 mm[Hg] JORGE DUARTE [facility] 4 14:02:16 Social History Question Answer Notes LastModified by Organizat ion Details LastModified Time Tobacco Smoking Status Former Smoker JORGE DUARTE [facility] 01/09/2023 14:03:35 Are You Blind Or Do You Have Difficulty Seeing? No Information not available 01/09/2023 What Is Your Level Of Caffeine Consumption? Occasional Information not available 07/23/2024 Are You Deaf Or Do You Have Serious Difficulty Hearing? No [email or web address] Information not available 01/09/2023 What Type Of Diet Are You Following? REGULAR Information not available 07/23/2024 When Did You Quit Smoking? 16+yearssincel edenette Information not available 01/09/2023 Have You Had Direct Contact, Or Contact During Intimacy, With Monkeypox Rash, Scabs, Or Body Fluids From A Person With Monkeypox? No [email or web address] Information not available 01/09/2023 What Is Your Relationship Status? Information not available 07/23/2024 Have You Recently Traveled Abroad? No Information not available 01/09/2023 Do You Have Difficulty Walking Or Climbing Stairs? No [email or web address] Information not available 01/09/2023 Do You Have Any Dietary Restrictions? No Information not available 07/23/2024 Sex: Unknown Functional Status Question Answer Note LastModified by Organizat ion Details LastModified Time Do you use any illicit or recreational drugs? No Information not available 07/23/2024 What is your level of alcohol consumption? None Information not available 07/23/2024 Are you currently employed? No retired Information not available 07/23/2024 Are you able to walk independently without assistance or assistive devices? YESWOREST [email or web address] Information not available 01/09/2023 Do you have difficulty doing errands alone? No [email or web address] Information not available 01/09/2023 Are you able to care for yourself independently? Yes [email or web address] Information not available 01/09/2023 Do you have difficulty dressing, bathing, grooming, or toileting? No [email or web address] Information not available 01/09/2023 Mental Status Question Answer Note LastModified by Organization D etails LastModified Time Do you have difficulty concentrating, remembering or making decisions? No [email or web address] Information no t available 01/09/2023 Family History Nothing Reported Notes:cancer: mother and fat her Medical History No medical history recorded. Immunizations Vaccine Type Date Status Note Provider David ibarra and Address Organization Details Recorded Time zoster recombinant 0 completed Not Available [facility] 01/13/2025 14:10:59 Influenza, split virus, trivalent, preservative 6 completed Not Available [facility] 02/11/2023 02:23:21 Pneumococcal conjugate PCV 13 6 completed Not Available [facility] 02/11/2023 02:23:21 pneumococcal polysaccharide PPV23 7 completed Not Available [facility] 02/11/2023 02:23:21 Past Encounters Encounter ID Performer Location Encounter Start Date Encounter Closed Date Diagnosis/Indication Diagnosis SNOMED-CT Code Diagnosis ICD10 Code Diagnosis IMO Codes Diagnosis Note [id number] Taiwo Reddy DO [facility] ([facility]) [address] [place] [address] 5 01/09/2023 13:46:54 01/09/2023 16:58:03 Congestive heart failure 61889746 I50.22 Atrial fibrillation 4943 6004 I48.91 Chronic ob structive pulmonary disease 91419279 J44.9 [id number] Taiwo Reddy DO [facility]) [address] [place] [address] 5 07/05/2023 11:44:19 07/05/2023 13:00:03 Chronic obstructive pulmonary disease 99431402 J44.9 Hyperglycemia 69128093 R 73.9 Congestive heart failure 77229978 I50.22 Trigger fi nger of right hand 7463810123 5539179 M65.207 [id number] Taiwo Reddy DO [facility] ([facility]) [address] [place] [address] 5 01/08/2024 14:22:28 01/08/2024 15:56:04 Chronic obstructive pulmonary disease 40929957 J44.9 Congestive heart failure 88237095 I50.22 Hyperglycemia 04715547 R 73.9 [id number] Taiwo Reddy DO [facility] ([facility]) [address] [place] [address] 5 07/08/2024 13:48:19 07/08/2024 14:15:44 Chronic obstructive pulmonary disease 40936235 J44.9 Congestive heart failure 43348305 I50.22 Atrial fibrillation 4943 6004 I48.91 [id number] Violeta Luis MD [facility] ([facility]) [address] [place] [address] 5 07/23/2024 14:45:44 07/23/2024 15:41:17 Lower abdominal pain 30497083 R10.30 Patient is having significan t lower abdominal tenderness . Some of that is suprapubic and there is some concerns potentiall y of urinary issues. Will grab a UA and culture today. Could potentiall y be related to urinary retention. Will obtain labs and recommend proceeding with advanced imaging given his discomfort . [id number] Violeta Luis MD [facility] ([facility]) [address] [place] [phone] 01/13/2025 14:10:34 01/13/2025 15:14:34 Atrial fibrillation 24320002 I48.91 Stable on current medication s. Congestive heart failure 61261447 I50.22 Doing well with current medication s. Continue to follow with cardiology Health Concerns Section Related Observation LastModified by Organization Detai ls LastModified Time None Recorded Concern Status LastModified by Organization Details LastModified Time None Recorded Advance Directives Directive None Recorded Payers Insurance Date Sequence Insurance Name Policy Number Policy Bowie Covered Member ID Bowie Member ID Guarantor Name 01/10/2025 [place] - [facility] (MEDICARE) Merrill Jimenez Jr [id number] Joshua Jimenez 01/10/2025 1 [place] [employer] Merrill Jimenez Jr [id number] Joshua Jimenez 01/15/2025 2 [employer] (MEDICARE SUPPLEMENT) Joshua Jimenez [id number] Joshua Jimenez Notes Date Note Type Note Provider Name and Address Organization Details Recorded Time 3 text/html COPDReported by PatientHPI:For onset/timing, patient reportsintermittent. For duration, patient reportschronicandhas noted for years. For severity, patient reportsmoderate.ROS as noted in the HPI Taiwo Reddy DO [address] [place] [address], [phone], MARIANELA - [facility] 07/[facility]/2023 12:06:31 4 text/html COPDReported by PatientHPI:For onset/timing, patient reportsintermittent. For duration, patient reportschronicandhas noted for years. For severity, patient reportsmoderate.ROS as noted in the [facility] Taiwo ReddyDO ashley [address] [place] [address], [phone], [facility] 01/08/2024 14:56:22 4 text/html COPDReported by PatientHPI:For onset/timing, patient reportsintermittent. For duration, patient reportschronicandhas noted for years. For severity, patient reportsmoderate.ROS as noted in the HPI Taiwo ReddyDO [address] [place] [address], [phone], [facility] 07/08/2024 14:13:26 5 text/html This is a 79-year-old gentleman that is transferring care from Dr. Reddy. He comes in due to lower abdominal pain. The patient states that it is sharp at times. The patient denies any nausea or vomiting or changes in his bowels. Patient has not had any fever. Patient does reports that he often has to get up at night to urinate. Patient denies any burning with urination or blood in his urine. Violeta Luis MD [address] [place] [address], [phone], [facility] 07/25/2024 09:39:50 5 text/html This is an 80-year-old gentleman that comes in today for routine checkup. The patient states that his current medical issues are stable on current medications and denies any issues today. Violeta Luis MD [address] [place] [address], [phone], [facility] 01/14/2025 11:36:37
--- NOTE | 2025-06-10 08:11 | W.ED.FALL ---
HPI - Fall General: Chief Complaint: Fall Stated Complaint: fall hit right side jaw Time Seen by Provider: 06/10/25 08:05 History of Present Illness: 80-year-old man with a history of coronary artery disease status post CABG, aortic valve replacement, chronic systolic congestive heart failure, hyperlipidemia, left bundle branch block, pulmonary hypertension, atrial fibrillation, pacemaker defibrillator placement, and carotid artery disease who presents to the emergency room after he tripped and fell. He hit his right jaw and neck. He has an abrasion on his neck. He is able to speak and move his jaw. Does have some pain. Related Data Home Medications ?Medication ?Instructions ?Recorded ?Confirmed montelukast 10 mg tablet 10 mg PO DAILY@14 01/14/20 12/16/24 (Singulair) multivitamin 1 tab PO QAM 08/05/20 12/16/24 aspirin 81 mg tablet,delayed 81 mg PO QAM 03/14/23 12/16/24 release krill 500 mg-omega 3 115 mg-dha 30 1 cap PO QAM 03/14/23 12/16/24 mg-epa 64 [id number] capsule (MegaRed [place]-3 Krill Oil) omeprazole 40 mg capsule,delayed 40 mg PO DAILY PRN Heartburn 03/14/23 12/16/24 release Previous Rx's ?Medication ?Instructions ?Recorded nitroglycerin 0.4 mg sublingual 0.4 mg sublingual Q5M PRN chest 03/14/23 tablet pain #30 tabs sacubitril 49 mg-valsartan 51 mg See Rx Instructions .Route 10/23/24 tablet (Entresto) .COMPLEX #180 tabs metoprolol succinate 25 mg See Rx Instructions .Route 01/07/25 tablet,extended release 24 hr .COMPLEX #90 tabs clopidogrel 75 mg tablet See Rx Instructions .Route 04/04/25 .COMPLEX #90 tabs rosuvastatin 20 mg tablet See Rx Instructions .Route 04/04/25 .COMPLEX #90 tabs hydrocodone 5 mg-acetaminophen 325 1 tab PO Q6H PRN pain #30 tabs 2525 mg tablet polyethylene glycol 3350 17 17 g PO DAILY #510 grams 06/10/25 gram/dose oral powder (Miralax) Allergies Allergy/AdvReac Type Severity Reaction Status Date / Time No Known Allergies Allergy Verified 12/16/24 10:36 Review of Systems Narrative: Constitutional symptoms: Negative except as documented in HPI. Skin symptoms: Negative except as documented in HPI. Eye symptoms: Negative except as documented in HPI. ENMT symptoms: Negative except as documented in HPI. Respiratory symptoms: Negative except as documented in HPI. Cardiovascular symptoms: Negative except as documented in HPI. Gastrointestinal symptoms: Negative except as documented in HPI. Genitourinary symptoms: Negative except as documented in HPI. Musculoskeletal symptoms: Negative except as documented in HPI. Neurologic symptoms: Negative except as documented in HPI. Psychiatric symptoms: Negative except as documented in HPI. Endocrine symptoms: Negative except as documented in HPI. PFSH ED PFSH: Medical History (Updated 06/10/25 @ 10:12 by Lulu Burt MD) Tobacco abuse Glucose intolerance Left bundle branch block ASHD (arteriosclerotic heart disease) The EKG revealed a sensed V paced rhythm. Occasional PVCs. COPD (chronic obstructive pulmonary disease) Cardiomyopathy Aortic stenosis Pulmonary HTN Atrial fibrillation Status post maze procedure, currently remaining in sinus rhythm Carotid stenosis, bilateral Surgical History S/P PTCA (percutaneous transluminal coronary angioplasty) S/P CABG (coronary artery bypass graft) S/P AVR (aortic valve replacement) History of maze procedure S/P ICD (internal cardiac defibrillator) procedure Family History Mother CAD (coronary artery disease) Cancer Father CAD (coronary artery disease) Cancer Denies family history of Diabetes Clotting disorder Dementia Chronic kidney disease (CKD) Suicide Anesthesia complication Bleeding disorder Lung disease Stroke Social History Smoking and tobacco/nicotine status: former use of tobacco/nicotine Household members: spouse Marital status: Physical Exam Narrative: EXAM NARRATIVE: General: Alert, no acute distress. Skin: Warm, dry. Head: Normocephalic, atraumatic. Neck: Supple, trachea midline. Patient does have an abrasion along side of his neck Eye: Extraocular movements are intact. Ears, nose, mouth and throat: mucosa moist. Complaining of some jaw pain but no obvious deformity and is able to speak without much pain. Cardiovascular: Regular, Normal peripheral perfusion. Respiratory: Lungs are clear to auscultation, respirations are non-labored, breath sounds are equal, Symmetrical chest wall expansion. Gastrointestinal: Soft, Nontender, Non distended Musculoskeletal: Normal ROM, no deformity. Neurological: Alert and oriented, No focal neurological deficit observed. Psychiatric: Cooperative, appropriate mood & affect. Course Vital Signs: Vital signs: Vital Signs Temperature 97.5 F L 06/10/25 08:07 Pulse Rate 59 L 06/10/25 10:15 Respiratory Rate 18 06/10/25 08:07 Blood Pressure 141/70 06/10/25 10:15 Pulse Oximetry 94 06/10/25 10:15 MDM - Fall Medical Decision Making Medical decision making Patient's reason for coming to the emergency room: Fall with jaw and neck pain Social determinants: Retired, I reviewed the patient's medical record. 80-year-old man with a history of coronary artery disease status post CABG, aortic valve replacement, chronic systolic congestive heart failure, hyperlipidemia, left bundle branch block, pulmonary hypertension, atrial fibrillation, pacemaker defibrillator placement, and carotid artery disease I reviewed the patient's current home meds Patient does not list any anticoagulation. Alternate historians: None Differential diagnosis including but not limited to and based on the above HPI, review of systems and physical exam: patient with fall and head injury with neck pain. Subdural hematoma, subarachnoid hemorrhage, concussion, skull fracture. Also concern for cervical fracture versus cervical strain. Orders placed to evaluate differential diagnosis based on the above differential, HPI and physical exam CT scan of the head and neck were ordered. CTA ordered as well as patient hit the side of his neck and has carotid stents. Evaluate for arterial injury CTA of neck shows no vascular injuries. This was reviewed and interpreted by myself the emergency room physician. I also reviewed the radiology report. CT head: No acute intracranial process. No intracranial hemorrhage, no evidence of infarct. No evidence of acute fracture. This was reviewed and interpreted by myself the emergency room physician. I also reviewed the radiology report. CT of the facial bones: Bilateral mandibular fractures. This was reviewed and interpreted by myself the emergency room physician. I also reviewed the radiology report. Lab Review: Laboratory results were reviewed and interpreted by myself the emergency room physician. Lab work is unremarkable. Mild leukocytosis. No anemia. No renal failure. Assessment of risk: Level of risk: Moderate risk patient. Elderly with multiple comorbidities Hospitalization considerations: Considered transfer for further care but ENT at [place] will see him as an outpatient. Reexamination: Patient remained stable. No increased work of breathing. No altered mental status. No focal motor deficits. Discussed not using his teeth and the diet he needed to have been follow-up. Consultation: I spoke with Dr. Olivarez with ENT in [place]. He will contact the patient and set up an appointment for outpatient follow-up. Recommends liquid/soft diet. No use of his dentures. Assessment and plan: Bilateral mandibular fracture ?Pain medication in the emergency room. - Discharged home - Discussed plan with patient. Answered any questions. - Evaluation and treatment of this problem were appropriate in the emergency setting. Lab Data 06/10/25 08:18 06/10/25 08:[address] 06/10/25 08:08 IMPRESSION: Bilateral mandible fractures. Head CT 06/10/25 08:08 IMPRESSION: No acute intracranial process. Neck CTA 06/10/25 08:08 IMPRESSION: Patent endovascular stent graft in the right internal carotid. 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 REFERENCES: NASCET CRITERIA. The degree of stenosis in the cervical segment of the internal carotid artery is based on NASCET criteria. Normal is no stenosis. Mild is less than 50% stenosis. Moderate is 50-69% stenosis. Severe is 70% to 99% stenosis. Total occlusion is no detectable patent lumen. Laboratory Results WBC 11.80 10^3/uL (3.29-11.43) H 06/10/25 08:18 RBC 5.16 10^6/uL (3.85-5.65) 06/10/25 08:18 Hgb 15.50 g/dL (11.27-16.99) 06/10/25 08:18 Hct 48.0 % (37-53) 06/10/25 08:18 MCV 93.0 fl (82-101) 06/10/25 08:18 MCH 30.0 pg (27-33) 06/10/25 08:18 MCHC 32.3 g/dL (30-55) 06/10/25 08:18 RDW 12.6 % (12.1-15.1) 06/10/25 08:18 Plt Count 239 10^3/cmm (157-399) 06/10/25 08:18 MPV 11.6 fL (7.4-10.4) H 06/10/25 08:18 Neut % (Auto) 80.4 % 06/10/25 08:18 Lymph % (Auto) 8.1 % 06/10/25 08:18 Lamb % (Auto) 7.6 % 06/10/25 08:18 Eos % (Auto) 2.3 % 06/10/25 08:18 Baso % (Auto) 1.2 % 06/10/25 08:18 Neut # (Auto) 9.48 10^3/uL (1.8-7.7) H 06/10/25 08:18 Lymph # (Auto) 1.0 10^3/uL (0.8-4.8) 06/10/25 08:18 Lamb # (Auto) 0.9 10^3/uL (0.2-0.9) 06/10/25 08:18 Eos # (Auto) 0.3 10^3/uL (0.0-0.8) 06/10/25 08:18 Baso # (Auto) 0.1 10^3/uL (0.0-0.1) 06/10/25 08:18 Nucleated RBC % (auto) 0 % 06/10/25 08:18 Nucleated RBCs # 0.0 /100WBC 06/10/25 08:18 Sodium 137 mmol/L (136-145) 06/10/25 08:18 Potassium 4.4 mmol/L (3.5-5.1) 06/10/25 08:18 Chloride 99 mmol/L (98-107) 06/10/25 08:18 Carbon Dioxide 25 mmol/L (22-29) 06/10/25 08:18 Anion Gap 17.4 (5-19) 06/10/25 08:18 BUN 12 mg/dL (8-23) 06/10/25 08:18 Creatinine 1.2 mg/dL (0.7-1.2) 06/10/25 08:18 GFR Calculation Not Reportable 06/10/25 08:18 Glucose 131 mg/dL (65-115) H 06/10/25 08:18 Calculated Osmolality 286 mOsm/kg (285-295) 06/10/25 08:18 Calcium 9.8 mg/dL (8.5-10.5) 06/10/25 08:18 All radiology interpretation(s) finalized by discharge Discharge Plan Discharge Patient Disposition: Home Clinical Impression: Bilateral mandibular fracture Condition: Stable Prescriptions: New hydrocodone-acetaminophen 5-325 mg tablet 1 tab PO Q6H PRN (Reason: pain) Qty: 30 0RF polyethylene glycol 3350 [Miralax] 17 gram/dose powder 17 g PO DAILY Qty: 510 0RF Rx Instructions: Take 1 scoop daily while taking pain medications. No Action montelukast [Singulair] 10 mg tablet 10 mg PO DAILY@14 multivitamin Tablet 1 tab PO QAM Entresto 49-51 mg tablet See Rx Instructions .ROUTE .COMPLEX Qty: 180 2RF Dose Instruction: TAKE ONE TABLET BY MOUTH TWICE DAILY Rx Instructions: TAKE ONE TABLET BY MOUTH TWICE DAILY metoprolol succinate 25 mg tablet extended release 24 hr See Rx Instructions .ROUTE .COMPLEX Qty: 90 3RF Dose Instruction: TAKE 1 TABLET BY MOUTH EVERY DAY Rx Instructions: TAKE 1 TABLET BY MOUTH EVERY DAY clopidogrel 75 mg tablet See Rx Instructions .ROUTE .COMPLEX Qty: 90 3RF Dose Instruction: TAKE 1 TABLET BY MOUTH EVERY DAY Rx Instructions: TAKE 1 TABLET BY MOUTH EVERY DAY rosuvastatin 20 mg tablet See Rx Instructions .ROUTE .COMPLEX Qty: 90 3RF Dose Instruction: TAKE 1 TABLET BY MOUTH EVERY DAY Rx Instructions: TAKE 1 TABLET BY MOUTH EVERY DAY Aspir-81 81 mg Tablet,Delayed Release (Dr/Ec) 81 mg PO QAM MegaRed [place]-3 Krill Oil 509-698-64-64 mg Capsule 1 cap PO QAM omeprazole 40 mg capsule,delayed release(DR/EC) 40 mg PO DAILY PRN (Reason: Heartburn) nitroglycerin 0.4 mg tablet, sublingual 0.4 mg sublingual Q5M PRN (Reason: chest pain) Qty: 30 0RF Rx Instructions: do not exceed 3 doses per episode. If symptoms have not resolved, call 911 Discharge Orders: Discharge ED (Routine); Ordered 06/10/25 Ordered By: Lulu Burt Referrals: Nico Luis MD [Primary Care Provider, Family Practice] Tripp Olivarez MD [Referring, Otolaryngology (ENT)] - 4-7 days Referral Note: If you do not hear from ENT please call to schedule an appointment. But they should call you Discharge Diet: As Directed, GI Soft and Full LIquid Patient Instructions: Jaw Fracture in Adults (ED), Opioid Safety, Pain Management, Patient Portal & Rob Instructions Activity Restrictions/Additional Instructions: ENT should contact you but if you do not hear from them please call their office. Do not use her dentures. Mechanical soft/liquid diet only. Thank you for choosing [facility] for your healthcare needs today. You have been screened and evaluated and felt safe for discharge. Health conditions do change or evolve sometimes and as such it is important that you follow up with your Primary Doctor to be re checked, 3-5 days is a general good time frame for follow up. You are always welcome to return to the ED for re assessment if your symptoms are worsening or you have new concerns Print Language: Estonian Coding Level of Care Code ED Road Tester for Fortunato Duncan
[2025-06-10 08:25] LABS: Hematocrit 48.0 % (37-53); Hemoglobin 15.50 g/dL (11.27-16.99); Mean Corpuscular HGB Conc 32.3 g/dL (30-55); Mean Corpuscular Hemoglobin 30.0 pg (27-33); Mean Corpuscular Volume 93.0 fl (82-101); Nucleated Red Blood Cells % 0 %; Platelet Count 239 10^3/cmm (157-399); Red Blood Count 5.16 10^6/uL (3.85-5.65); White Blood Count 11.80 10^3/uL (3.29-11.43)
[2025-06-10 08:42] LABS: Anion Gap 17.4 (5-19); Blood Urea Nitrogen 12 mg/dL (8-23); Calcium 9.8 mg/dL (8.5-10.5); Carbon Dioxide 25 mmol/L (22-29); Chloride 99 mmol/L (98-107); Glucose 131 mg/dL (65-115); Osmolality Calculated 286 mOsm/kg (285-295); Potassium 4.4 mmol/L (3.5-5.1); Sodium 137 mmol/L (136-145)
[2025-06-10] MEDS: HYDROcodone-acetaminophen 5-325 mg Tablet 1 TAB PO (08:46)
[2025-06-10] MEDS: iohexol 350 mg/mL 500 mL Btl (per mL) IV (09:11)
[2025-06-10 10:15] VITALS: BP 141/70; PULSE 59; PULSE 68; O2SAT 93; O2SAT 94
== END 2025-06-10 10:25 | disposition home or self-care (01) ==
PROVIDERS: Emergency Provider Emergency Medicine; PCP Family Medicine
DX: S02.652A Fracture of angle of left mandible, initial encounter for closed fracture (principal); S02.651A Fracture of angle of right mandible, initial encounter for closed fracture; W01.0XXA Fall on same level from slipping, tripping and stumbling without subsequent striking against object, initial encounter; Z95.1 Presence of aortocoronary bypass graft; E78.5 Hyperlipidemia, unspecified; Z95.0 Presence of cardiac pacemaker; J44.9 Chronic obstructive pulmonary disease, unspecified; I25.10 Atherosclerotic heart disease of native coronary artery without angina pectoris; I11.0 Hypertensive heart disease with heart failure; I50.22 Chronic systolic (congestive) heart failure
CPT/HCPCS: 70450; 70486; 70498; 80048; 85025; 99285; J9999